=== PATIENT | female | born 1975 | race Caucasian/White ===

== ENCOUNTER 2020-02-13 09:59 | Outpatient (REF) | payer OTHER, SELFPAY ==
[2020-02-14 10:12] LABS: BV Int Neg Control Negative (Negative)
[2020-02-14 10:13] LABS: BV Int Pos Control Positive (Positive)
== END 2020-02-13 10:00 | disposition home or self-care (01) ==
LOC: HO.LNP 09:59
PROVIDERS: PCP Internal Medicine; Referring Provider Internal Medicine; Visit Provider Advanced Practice Midwife
DX: N93.9 Abnormal uterine and vaginal bleeding, unspecified (principal); N76.0 Acute vaginitis; Z53.8 Procedure and treatment not carried out for other reasons
CPT/HCPCS: 57455; 81025; 87480; 87510; 87660

== ENCOUNTER 2020-02-19 11:22 | Outpatient (REF) | payer OTHER, SELFPAY ==
[2020-02-19 12:07] LABS: MANUAL DIFF FLAG NO
[2020-02-19 12:10] LABS: Basophils Percent Auto 0.6 % (0-2); Eosinophils Absolute Auto 0.1 X10*3/uL (0.0-0.4); Eosinophils Percent Auto 2.4 % (0-4); Hematocrit 39.8 % (37-47); Hemoglobin 13.5 g/dl (12.0-16.0); Imm Gran Abs Auto 0.01 X10*3/uL (0.00-0.03); Imm Gran Pct Auto 0.2 % (0.0-0.4); Lymphocytes Absolute Auto 1.5 X10*3/uL (1.2-4.9); Lymphocytes Percent Auto 27.1 % (20-40); Mean Corpuscular HGB Conc 33.9 g/dl (31.0-35.0); Mean Corpuscular Hemoglobin 30.1 pg (27.0-33.0); Mean Corpuscular Volume 88.8 fL (80-98); Mean Platelet Volume 9.7 fL (9.4-12.3); Monocytes Absolute Auto 0.4 X10*3/uL (0.1-1.2); Neutrophils Absolute Auto 3.4 X10*3/uL (2.0-8.3); Neutrophils Percent Auto 62.7 % (45-73); Platelet Count 209 X10*3/uL (160-400); Red Blood Count 4.48 X10*6/uL (4.20-5.50); Red Cell Distribution Width 12.4 % (11.0-16.0); White Blood Count 5.4 X10*3/uL (4.8-10.8)
[2020-02-19 12:19] LABS: Glucose Urine UA NEG (NEG); Leukocyte Esterase Urine NEG (NEG); Nitrite Urine NEG (NEG); Specific Gravity - Urine <= 1.005 (1.005-1.025); Urine Blood 3+ (NEG); Urine Ketones NEG (NEG); Urine Protein NEG (NEG-TRACE)
[2020-02-19 12:26] LABS: Appearance Urine CLEAR; Color Urine YELLOW
[2020-02-19 12:29] LABS: Squamous Epithelial Cell Urine 1+ /LPF; WBC Urine 0 /HPF (0-4)
[2020-02-19 12:35] LABS: Alanine Aminotransferase 18 U/L (0-31); Albumin Level 4.4 g/dL (3.5-5.0); Alkaline Phosphatase 67 U/L (39-117); Anion Gap 11 (12-20); Aspartate Amino Transferase 20 U/L (5-31); Bilirubin Total 0.3 mg/dL (0.0-1.0); Blood Urea Nitrogen 13 mg/dL (9-16); Carbon Dioxide 23 mmol/L (22-29); Chloride 111 mmol/L (96-108); Estimated Glomerular Filt Rate > 60; Glucose Random 99 mg/dL (60-115); Potassium 3.7 mmol/l (3.3-5.1); Sodium 141 mmol/L (135-145); Total Protein 6.6 g/dL (6.5-8.0)
[2020-02-19 15:45] LABS: C Reactive Protein 0.06 mg/dL (< or = 0.50)
== END 2020-02-19 11:23 | disposition home or self-care (01) ==
LOC: HO.LAB 11:22
PROVIDERS: PCP Internal Medicine; Visit Provider Internal Medicine
DX: R31.9 Hematuria, unspecified (principal); R10.9 Unspecified abdominal pain
CPT/HCPCS: 36415; 80053; 81001; 85025; 86140; 87086

== ENCOUNTER 2020-02-20 12:29 | Outpatient (REF) | payer OTHER, SELFPAY ==
--- NOTE | 2020-02-20 | US_ITS ---
EXAMINATION: US RETROPERITONEAL COMPLETE (RENAL) CLINICAL INFORMATION: Hematuria. Right flank pain. COMPARISON: CT abdomen and pelvis 09/20/2016. Renal ultrasound 06/28/2016 and 12/15/2015. MRI abdomen 04/08/2016. TECHNIQUE: Real-time imaging of the kidneys and bladder. FINDINGS: RIGHT KIDNEY: 9.9 x 3.7 x 4.1 cm (SAG x AP x TRV). The kidney is normal in size, contour, and echogenicity. Renal cortical thickness is normal. No focal parenchymal lesions or hydronephrosis. At the interpolar aspect, a 3 mm nonobstructing calculus is seen, with twinkle artifact. LEFT KIDNEY: 10.9 x 5.5 x 5.6 cm (SAG x AP x TRV). The kidney is normal in size, contour, and echogenicity. Renal cortical thickness is normal. No focal parenchymal lesions or hydronephrosis. At the interpolar aspect, a 3 mm nonobstructing calculus is seen, with twinkle artifact. BLADDER: Well distended and normal. Bilateral ureteral jets are demonstrated. Prevoid bladder volume is 644 mL. Postvoid bladder volume is 311 mL. IMPRESSION: 1. Nonobstructing bilateral renal calculi are seen, as above. There is no hydronephrosis. 2. There is an increased postvoid residual volume.
== END 2020-02-20 12:30 | disposition home or self-care (01) ==
LOC: HO.US 12:29
PROVIDERS: PCP Internal Medicine; Visit Provider Internal Medicine
DX: R10.9 Unspecified abdominal pain (principal); R31.9 Hematuria, unspecified
CPT/HCPCS: 76775; 76857

== ENCOUNTER 2020-03-02 08:43 | Outpatient (REF) | payer OTHER, SELFPAY | END 2020-03-02 08:44 | disposition home or self-care (01) | LOC: HO.LAB 08:43 | PROVIDERS: PCP Internal Medicine; Visit Provider Internal Medicine | DX: Z20.828 Contact with and (suspected) exposure to other viral communicable diseases (principal) | CPT/HCPCS: 87635 ==

== ENCOUNTER → 2020-03-19 10:23 | Outpatient (BNVA) | payer OTHER, SELFPAY | PROVIDERS: Visit Provider Obstetrics & Gynecology | DX: Z76.89 Persons encountering health services in other specified circumstances (principal) ==

== ENCOUNTER → 2020-03-27 14:15 | Outpatient (BNVA) | payer OTHER, SELFPAY | PROVIDERS: PCP Internal Medicine; Visit Provider Obstetrics & Gynecology | DX: Z76.89 Persons encountering health services in other specified circumstances (principal) ==

== ENCOUNTER 2020-04-03 10:31 | Day surgery (SDC) | payer OTHER, SELFPAY ==
[2020-03-30 11:29] VITALS: BMI 21.8
--- NOTE | 2020-04-01 14:36 | P.CONAN_ITS ---
Documented by User: Yady Umaña 04/01/20 14:37 HPI - Anesthesia Eval Consult details Narrative: 44yo F for D&C Diagnostic Hysteroscopy, Poss Polypectomy, Myomectomy PMFSH Past Medical History Medical History ARASH positive Chronic pain Depression with anxiety GERD (gastroesophageal reflux disease) IBS (irritable bowel syndrome) Interstitial cystitis Lupus Migraine with aura PONV (postoperative nausea and vomiting) Renal calculi Vitamin D deficiency Family History Family History Mother Hx of cancer of lung Other No family history of breast cancer Surgical History Surgical History H/O colonoscopy H/O cystoscopy H/O lithotripsy History of loop electrical excision procedure (LEEP) Social History Social History Are you a primary intensive care nurse to a significant other at home: No Do you presently have visiting nurse or other home services: No Alcohol intake: never Smoking Status: Never smoker Use of substances other than those prescribed or required for medical reasons: No Have you been hit, kicked, punched, or otherwise hurt by someone within the past year? If so, by whom?: No Advance Directives: No Advance Directives Information Provided: No Advance Directives on File: No Sexual orientation: Straight/Heterosexual Gender identity: female Meds Allergies Allergy/AdvReac Type Severity Reaction Status Date / Time No Known Allergies Allergy Verified 03/30/20 11:25 [No Known Allergies*] seasonal Allergy Unknown Nasal Uncoded 03/30/20 11:25 congestion Home Medications Medication Instructions Recorded Confirmed Type amitriptyline 25 mg tablet 25 mg PO BEDTIME 02/13/20 03/30/20 History hydroxychloroquine 200 mg tablet 200 mg PO DAILY 02/13/20 03/30/20 History hyoscyamine sulfate 0.125 mg tablet 0.125 mg PO QID PRN 02/13/20 03/30/20 History ketorolac 10 mg tablet 10 mg PO Q OTHER DAY PRN 02/13/20 03/30/20 History ondansetron HCl 4 mg tablet 4 mg PO DAILY PRN 02/13/20 03/30/20 History sertraline 25 mg tablet 25 mg PO DAILY 02/13/20 03/30/20 History sumatriptan succinate 100 mg tablet 100 mg PO PRN 02/13/20 03/27/20 History topiramate 100 mg tablet 100 mg PO BID 02/13/20 03/27/20 History tramadol 50 mg tablet 100 mg PO BID PRN 02/13/20 03/27/20 History Exam Exam Date and Time: April 01, 2020 1436 Height,Weight and Vital Signs: Height 5 ft 5 in Weight 59.421 kg Pertinent Lab Results Pertinent Lab Results: Laboratory Tests 02/19/20 02/19/20 11:50 11:50 WBC 5.4 Hgb 13.5 Hct 39.8 Plt Count 209 Sodium 141 Potassium 3.7 Chloride 111 H Carbon Dioxide 23 BUN 13 Creatinine 0.83 Assessment and Plan Assessment Anesthesia Assessment: Chart Reviewed Documented by User: Anand White 04/03/20 12:08 PMFSH Past Medical History Medical History ARASH positive Chronic pain Depression with anxiety GERD (gastroesophageal reflux disease) IBS (irritable bowel syndrome) Interstitial cystitis Lupus Migraine with aura PONV (postoperative nausea and vomiting) Renal calculi Vitamin D deficiency Family History Family History Mother Hx of cancer of lung Other No family history of breast cancer Surgical History Surgical History H/O colonoscopy H/O cystoscopy H/O lithotripsy History of loop electrical excision procedure (LEEP) Social History Social History Are you a primary intensive care nurse to a significant other at home: No Do you presently have visiting nurse or other home services: No Alcohol intake: never Smoking Status: Never smoker Use of substances other than those prescribed or required for medical reasons: No Have you been hit, kicked, punched, or otherwise hurt by someone within the past year? If so, by whom?: No Advance Directives: No Advance Directives Information Provided: No Advance Directives on File: No Sexual orientation: Straight/Heterosexual Gender identity: female Meds Allergies Allergy/AdvReac Type Severity Reaction Status Date / Time No Known Allergies Allergy Verified 03/30/20 11:25 [No Known Allergies*] seasonal Allergy Unknown Nasal Uncoded 03/30/20 11:25 congestion Home Medications Medication Instructions Recorded Confirmed Type amitriptyline 25 mg tablet 25 mg PO BEDTIME 02/13/20 03/30/20 History hydroxychloroquine 200 mg tablet 200 mg PO DAILY 02/13/20 03/30/20 History hyoscyamine sulfate 0.125 mg tablet 0.125 mg PO QID PRN 02/13/20 03/30/20 History ketorolac 10 mg tablet 10 mg PO Q OTHER DAY PRN 02/13/20 03/30/20 History ondansetron HCl 4 mg tablet 4 mg PO DAILY PRN 02/13/20 03/30/20 History sertraline 25 mg tablet 25 mg PO DAILY 02/13/20 03/30/20 History sumatriptan succinate 100 mg tablet 100 mg PO PRN 02/13/20 03/27/20 History topiramate 100 mg tablet 100 mg PO BID 02/13/20 03/27/20 History tramadol 50 mg tablet 100 mg PO BID PRN 02/13/20 03/27/20 History Exam Airway Mallampati Class: II TM Dist: >3cm Neck ROM: Full Loose/Missing/Broken Teeth: No Heart: [id number] Lungs: cta b/l Assessment and Plan Assessment Anesthesia Assessment: Anesthesia Plan Discussed and Chart Reviewed Final Anesthetic Review NPO: Yes ASA Class: II Final Preanesthetic Review: No Changes in Pt Med Stat, Meds/Allgs Chart Reviewed, Consent Obtained/Reviewed and Anes Risks/Benef Reviewed Patient Risk: Low Procedure Risk: Low Anesthetic Plan Anesthetic Plan: GA Disposition: Standard PACU
[2020-04-03] VITALS (10 sets, daily range): BP systolic 114–134; BP diastolic 68–87; PULSE 79–94; RESP 16; TEMP 36.1–36.6; O2SAT 98–100
--- NOTE | 2020-04-03 10:14 | PM.OP ---
Brief Operative Note Date of Service: 04/03/20 Pre-op diagnosis: Completed Family Requesting permanent Sterilization Post-op diagnosis: same Procedure: Laparscoic bliateral salpingectomy Surgeon: Clifford Peralta MD Anesthesia: GETA Estimated blood loss (mL): 0 Pathology: other (Right & left fallopian tubes) Condition: stable Disposition: PACU
--- NOTE | 2020-04-03 10:16 | P.OP_ITS ---
Operative Note Operative Note Date of Service: 04/03/20 Narrative: PREOPERATIVE DIAGNOSIS:?Completed family requesting?permanent sterilization POSTOPERATIVE DIAGNOSIS:?Completed family requesting?permanent sterilization QBL: Minimal Anesthesia: GETA SURGEON:? Clifford Peralta MD?? Geographic Information Scientist: Complications: None Pathology: Right and left Fallopian tubes? DESCRIPTION OF PROCEDURE:?The patient was taken to the OR where general anesthesia was easily obtained. The patient was then prepped and draped in a sterile fashion and placed in dorsal lithotomy position. A speculum was introduced into the patient?s vagina for cervical visualization. Once the cervix was visualized, a single-toothed tenaculum was applied to the upper lip of the cervix, and a Humi manipulator was introduced into the patient?s cervix. The single tooth tenaculum was then removed and hemostasis was assured?using pressure. a Huntley catheter?was inserted and clear urine started draining. Gloves were changed to clean ones. Attention was then drawn to the abdomen where a 10 mm longitudinal incision was done intra umbilical and carried down all the way to the fascia, which was tented?up using 2 Ethan clamps and was nicked in the midline and then extended on both end of the incision?, them using 2 pick?ups the peritoneum?was entered with Metzenbaum scissors and under direct visualization, a 10 mm Gautam trocar was introduced into the patient?s abdomen. Once intraperitoneal placement was confirmed with direct visualization, pneumoperitoneum was started & was easily obtained.Then, two fingerbreadths above the pubic symphysis and towards the?right lower quadrant, under direct visualization, a 5 mm trocar was then introduced into the patient?s abdomen. and a 3rd one on the left?lower quadrant was placed?in a similar manner. The patient was placed in Trendelenburg position, Inspection revealed normal pelvic stru ctures & bilateral ovaries and fallopian tubes. Attention was then drawn to the left fallopian tube. The IP ligament was identified and fallopian tube was then grasped by the fimbria and incised from the mesosalpinx using ligasure device, using cautery for hemostasis and cutting afterwards a bite at a time all the way to the cornual end of the left tube. The same was done?on the?right fallopian tu be. Good hemostasis was noted from both fallopian tube sites and the operative site. Specimen were then removed from the patient?s abdomen. Copious irrigation was done. Once good hemostasis was noted from the patient?s abdomen, pneumoperitoneum was deflated and all trocars were removed. Infraumbilical fascia was closed with 0 Vicryl and interrupted suture. The skin was closed with 4-0 Vicryl. The Right and left?lower quadrant ports were closed with 0 Vicryl. Bupivicaine 0.25 10 cc were injected subcuticularly in the 3 incisions. Then speculum was put back in the vagina inspection revealed?hemostasis at the site of the tenaculum, the?humi manipulator was removed? and Huntley was draining clear urine was taken out too. Sponge, lap and needle counts were correct x2. The patient was taken to the recovery room in stable condition.
[2020-04-03 10:54] LABS: UPreg QC Valid YES; Urine Pregnancy NEGATIVE (NEGATIVE)
[2020-04-03] MEDS: Scopolamine 1.5 MG PATCH.TD.3 TRANSDERMA (10:57)
[2020-04-03] MEDS: Acetaminophen 325 MG TABLET 650 MG PO (10:57)
[2020-04-03] MEDS: Lactated Ringers 1,000 ML 100 ML IVCONT (10:57)
--- NOTE | 2020-04-03 12:07 | MHC.SHP ---
Pre-Procedural Eval Section A The patient is an INPATIENT: No Changes since office visit: No Cold of Flu in the past 2 weeks, No New Medical Problems, No Changes in Medication and No Patient answered all questions The History & Physical has been completed within 30 days and I have reviewed it.: Yes Section B Chief Complaint: Abnormal Uterine Bleeding Allergies: Allergies Allergy/AdvReac Type Severity Reaction Status Date / Time No Known Allergies Allergy Verified 03/30/20 11:25 [No Known Allergies*] seasonal Allergy Unknown Nasal Uncoded 03/30/20 11:25 congestion Plan Diagnosis/Plan: Unchanged Patient has been examined and remains a candidate for the planned procedure
--- NOTE | 2020-04-03 12:42 | PM.OP ---
Brief Operative Note Date of Service: 04/03/20 Pre-op diagnosis: Menometrorrhagia Post-op diagnosis: same Procedure: Hysteroscopy D&C Surgeon: Clifford Peralta MD Anesthesia: MAC Estimated blood loss (mL): 0 Pathology: other (Endometrial Scrapping. Polyp) Condition: stable Disposition: PACU
--- NOTE | 2020-04-03 12:47 | W.PM.OPN ---
Operative Note Operative Note Date of Service: 04/03/20 Narrative: Preop Diagnosis: Menometrorrhagia Operation: Diagnostic Hysteroscopy, Dilataion & Curettage Post Op Diagnosis: normal endometrial and endocervical cavity no evidence of pathology QBL: Minimal Anesthesia: MAC Surgeon: Clifford Peralta MD Special Collections Librarian: None Complication: None Pathology: Endometrial Scrapings Procedure: The patient was put in the dorsal lithotomy position, scrubbed, and draped in the usual manner. A sterile speculum was inserted in the patient's vagina. The anterior lip of the cervix was grasped with a single tooth tenaculum. The cervix was dilated up to 5 mm, then the scope was inserted in the patient's uterus. Inspection revealed normal endocervical & endometrial cavity with no evidence of pathology. The scope was taken out of the uterine cavity , then sharp curetting was carried on with no complications. At the end of the procedure, all instruments were taken out of the patient uterine and vaginal cavity. The single tooth tenaculum was removed and homeostasis was assured using pressure. The patient tolerated the procedure well and was transferred to the PACU in a stable condition.
[2020-04-03] MEDS: fentaNYL citrate/PF 100 MCG/2 ML VIAL 50 MCG IVPUSH ×2 (13:05→13:17)
[2020-04-03] MEDS: oxyCODONE HCl Immed Release 5 MG TABLET PO ×2 (13:08→13:25)
== END 2020-04-03 14:00 | disposition home or self-care (01) ==
PROVIDERS: Nurse Practitioner; PCP Internal Medicine; Visit Provider Obstetrics & Gynecology
PROC: 0UDB8ZX Extraction of Endometrium, Via Natural or Artificial Opening Endoscopic, Diagnostic (ICD-10-PCS; CPT 58558; principal; 2020-04-03 12:00)
DX: N93.9 Abnormal uterine and vaginal bleeding, unspecified (principal); N92.1 Excessive and frequent menstruation with irregular cycle; M32.9 Systemic lupus erythematosus, unspecified; G89.29 Other chronic pain; G43.109 Migraine with aura, not intractable, without status migrainosus; E55.9 Vitamin D deficiency, unspecified; Z79.899 Other long term (current) drug therapy
CPT/HCPCS: 58558; 81025; 88305; J1100; J2250; J2405; J3010

== ENCOUNTER 2020-04-06 09:52 | Outpatient (REF) | payer OTHER, SELFPAY ==
[2020-04-06 11:48] LABS: COVID-19 Test Negative (Negative)
== END 2020-04-06 09:53 | disposition home or self-care (01) ==
LOC: HO.EMPCOV 09:52
PROVIDERS: PCP Internal Medicine; Visit Provider Internal Medicine
DX: Z20.828 Contact with and (suspected) exposure to other viral communicable diseases (principal)
CPT/HCPCS: 87635; C9803

== ENCOUNTER → 2020-04-23 14:25 | Outpatient (BNVA) | payer OTHER, SELFPAY | PROVIDERS: Visit Provider Obstetrics & Gynecology | DX: Z76.89 Persons encountering health services in other specified circumstances (principal) ==

== ENCOUNTER → 2020-08-20 10:17 | Outpatient (BNVA) | payer OTHER, SELFPAY | PROVIDERS: PCP Internal Medicine; Visit Provider Student in an Organized Health Care Education/Training Program ==

== ENCOUNTER → 2021-06-16 14:57 | Outpatient (BNVA) | payer OTHER, SELFPAY | PROVIDERS: PCP Nurse Practitioner Family; Visit Provider Anesthesiology ==

== ENCOUNTER 2021-07-13 05:55 | Outpatient (REF) | payer OTHER, SELFPAY ==
--- NOTE | ~2021-07-13 | FL_ITS ---
EXAMINATION: XR FLUOROSCOPY WITH IMAGES CLINICAL INFORMATION: Sacroiliitis. COMPARISON: None. TECHNIQUE: Fluoroscopy performed by Reema Blandon. Fluoroscopy time: 0.2 minutes DAP: 1.6 Gy-cm2 Images: 1 FINDINGS: Images demonstrate needle placement over the right sacroiliac joint. FL/FL guidance in treatment room IMPRESSION: Fluoroscopy guidance for pain management procedure.
== END 2021-07-13 05:56 | disposition home or self-care (01) ==
LOC: HO.RADIR 05:55
PROVIDERS: Visit Provider Anesthesiology
DX: M46.1 Sacroiliitis, not elsewhere classified (principal); E55.9 Vitamin D deficiency, unspecified; M79.7 Fibromyalgia; G89.4 Chronic pain syndrome; F41.8 Other specified anxiety disorders; Z91.09 Other allergy status, other than to drugs and biological substances
CPT/HCPCS: J3300; Q9967

== ENCOUNTER → 2021-08-16 09:16 | Outpatient (BNVA) | payer OTHER, SELFPAY | PROVIDERS: PCP Nurse Practitioner Family; Visit Provider Anesthesiology | DX: Z13.89 Encounter for screening for other disorder (principal) ==

== ENCOUNTER 2021-11-02 06:24 | Outpatient (REF) | payer OTHER, SELFPAY ==
--- NOTE | ~2021-11-02 | FL_ITS ---
EXAMINATION: XR FLUOROSCOPY WITH IMAGES CLINICAL INFORMATION: Sacroiliitis. COMPARISON: 07/13/2021. TECHNIQUE: Fluoroscopy performed by Reema Blandon. Fluoroscopy time: 0.4 minutes DAP: 1.26 Gy-cm2 Images: 4 FINDINGS: Imaging demonstrates needles and contrast overlying the sacroiliac joints bilaterally. FL/FL guidance in treatment room IMPRESSION: Fluoroscopy performed for pain management procedure.
== END 2021-11-02 06:25 | disposition home or self-care (01) ==
LOC: HO.RADIR 06:24
PROVIDERS: Visit Provider Anesthesiology
DX: M46.1 Sacroiliitis, not elsewhere classified (principal); G89.4 Chronic pain syndrome
CPT/HCPCS: 27096

== ENCOUNTER 2021-12-21 17:53 | Outpatient (REF) | payer OTHER, SELFPAY | END 2021-12-21 17:54 | disposition home or self-care (01) | LOC: HO.LNP 17:53 | PROVIDERS: Visit Provider Nurse Practitioner Family | DX: N39.0 Urinary tract infection, site not specified (principal) | CPT/HCPCS: 87086 ==

== ENCOUNTER 2021-12-22 15:07 | Outpatient (REF) | payer OTHER, SELFPAY ==
--- NOTE | ~2021-12-22 | XR_ITS ---
EXAMINATION: XR ABDOMEN KUB CLINICAL INDICATION: N20.0 - Calculus of kidney COMPARISON: Renal ultrasound 02/20/2020; radiographs lumbar spine 10/13/[address] abdomen and pelvis 03/12/2016. TECHNIQUE: AP x2 views of the abdomen. FINDINGS: Lung bases clear. No gaseous dilatation of bowel or abnormal collections of gas. Moderate stool right colon. Small oval calcification just lateral to upper pole right kidney, possibly gallstone, similar to lumbar radiographics 2017. No calculi noted on remote CT 2015. No definite renal or ureteral calculi by plain film. No visible acute bony abnormality. XR/XR KUB IMPRESSION: -Question small gallstone, similar to radiographs 2017. -No definite visible urinary tract calculi on plain film.
== END 2021-12-22 15:08 | disposition home or self-care (01) ==
LOC: HO.XRAY 15:07
PROVIDERS: Visit Provider Nurse Practitioner Family
DX: N20.0 Calculus of kidney (principal)
CPT/HCPCS: 74018

== ENCOUNTER 2021-12-24 07:19 | Outpatient (REF) | payer OTHER, SELFPAY ==
[2021-12-24 11:13] LABS: MANUAL DIFF FLAG NO
[2021-12-24 11:21] LABS: Basophils Absolute Auto 0.1 X10*3/uL (0.0-0.2); Basophils Percent Auto 0.7 % (0-2); Eosinophils Absolute Auto 0.4 X10*3/uL (0.0-0.4); Eosinophils Percent Auto 4.3 % (0-4); Hematocrit 41.9 % (37.0-47.0); Hemoglobin 13.7 g/dl (12.0-16.0); Imm Gran Abs Auto 0.03 X10*3/uL (0.00-0.03); Imm Gran Pct Auto 0.4 % (0.0-0.4); Lymphocytes Absolute Auto 2.4 X10*3/uL (1.2-4.9); Lymphocytes Percent Auto 29.1 % (20-40); Mean Corpuscular HGB Conc 32.7 g/dl (31.0-35.0); Mean Corpuscular Hemoglobin 29.3 pg (27.0-33.0); Mean Corpuscular Volume 89.7 fL (80.0-98.0); Mean Platelet Volume 9.7 fL (9.4-12.3); Monocytes Absolute Auto 0.9 X10*3/uL (0.1-1.2); Monocytes Percent Auto 10.7 % (2-11); Neutrophils Absolute Auto 4.5 x10*3/uL (2.0-8.3); Neutrophils Percent Auto 54.8 % (45-73); Platelet Count 268 X10*3/uL (160-400); Red Blood Count 4.67 X10*6/uL (4.20-5.50); Red Cell Distribution Width 13.2 % (11.0-16.0); White Blood Count 8.1 X10*3/uL (4.8-10.8)
[2021-12-24 11:45] LABS: Alanine Aminotransferase 15 U/L (0-31); Albumin Level 4.6 g/dL (3.5-5.0); Alkaline Phosphatase 77 U/L (39-117); Amylase 77 U/L (28-100); Anion Gap 14 (12-20); Aspartate Amino Transferase 20 U/L (5-31); Bilirubin Total 0.5 mg/dL (0.0-1.0); Blood Urea Nitrogen 10 mg/dL (9-16); Calcium 9.5 mg/dL (8.4-10.2); Carbon Dioxide 25 mmol/L (22-29); Chloride 101 mmol/L (96-108); Cholesterol 238 mg/dL; Estimated Glomerular Filt Rate > 60; Glucose Fasting 72 mg/dL (60-99); HDL Cholesterol 48 mg/dL; LDL Cholesterol Calculated 146 mg/dl; Lipase 45 U/L (8-78); Potassium 4.4 mmol/L (3.3-5.1); Sodium 136 mmol/L (135-145); Total Protein 6.9 g/dL (6.5-8.0); Triglycerides 223 mg/dL
[2021-12-24 11:51] LABS: TSH reflex Free T4 1.77 uIU/mL (0.32-4.0)
== END 2021-12-24 07:20 | disposition home or self-care (01) ==
LOC: HO.HMGCLDS 07:19
PROVIDERS: PCP Nurse Practitioner Family; Visit Provider Nurse Practitioner Family
DX: R10.2 Pelvic and perineal pain (principal); N20.0 Calculus of kidney
CPT/HCPCS: 36415; 80053; 80061; 82150; 83690; 84443; 85025

== ENCOUNTER 2022-02-17 10:52 | Outpatient (REF) | payer OTHER, SELFPAY ==
[2022-02-17 16:47] LABS: CT PCR NOT DETECTED (Not Detect.); NG PCR NOT DETECTED (Not Detect.)
[2022-02-18 10:26] LABS: BV Int Neg Control Negative (Negative); BV Int Pos Control Positive (Positive)
== END 2022-02-17 10:53 | disposition home or self-care (01) ==
LOC: HO.LNP 10:52
PROVIDERS: Visit Provider Obstetrics & Gynecology
DX: Z11.3 Encounter for screening for infections with a predominantly sexual mode of transmission (principal); R10.2 Pelvic and perineal pain; N39.0 Urinary tract infection, site not specified; N93.9 Abnormal uterine and vaginal bleeding, unspecified; R31.29 Other microscopic hematuria; D21.9 Benign neoplasm of connective and other soft tissue, unspecified
CPT/HCPCS: 81025; 87086; 87480; 87491; 87510; 87591; 87660; 96372; J0696

== ENCOUNTER 2022-03-09 14:14 | Outpatient (REF) | payer OTHER, SELFPAY | END 2022-03-09 14:15 | disposition home or self-care (01) | LOC: HO.LNP 14:14 | PROVIDERS: Visit Provider Obstetrics & Gynecology | DX: N93.9 Abnormal uterine and vaginal bleeding, unspecified (principal) | CPT/HCPCS: 58100; 88305 ==

== ENCOUNTER 2022-04-15 07:50 | Day surgery (SDC) | payer OTHER, SELFPAY ==
--- NOTE | 2022-04-14 09:32 | HO.ANESPROP2 ---
Documented by User: Yady Umaña NP 04/14/22 09:33 HPI - Anesthesia Eval Consult details Narrative: 46yo F for Uterine Ablation w/Roxannaasure PMFSH Active Problems Active Problems: All Active Problems (Updated 03/24/22 @ 13:52 by Clifford Peralta MD) Abnormal uterine bleeding (AUB) (Acute) Acute vaginitis (Acute) Migraine (Acute) UTI (urinary tract infection) (Acute) Kidney stone on right side (Acute) Suprapubic pain, acute (Acute) Pelvic pain (Acute) Microscopic hematuria (Acute) Myoma (Acute) Chronic pain syndrome (Acute) Sacroiliitis (Acute) Fibromyalgia (Acute) Past Medical History Medical History ARASH positive Chronic pain Chronic pain syndrome Depression with anxiety Fibromyalgia GERD (gastroesophageal reflux disease) IBS (irritable bowel syndrome) Interstitial cystitis Lupus Migraine with aura PONV (postoperative nausea and vomiting) Renal calculi Sacroiliitis Vitamin D deficiency Family History Family History Mother Hx of cancer of lung Other No family history of breast cancer Surgical History Surgical History H/O colonoscopy H/O cystoscopy H/O lithotripsy History of dilatation and curettage History of loop electrical excision procedure (LEEP) Social History Social History Are you a primary team primary care physician to a significant other at home: No Do you presently have visiting nurse or other home services: No Alcohol intake: never Patient Tobacco Use Status: Never used Tobacco Substance Use Type Other:: cbd oil - back Are you DNR?: No Advance Directives: No Advance Directives Information Provided: Yes Sexual orientation: Straight/Heterosexual Gender identity: Female Meds Allergies Allergy/AdvReac Type Severity Reaction Status Date / Time seasonal Allergy Intermediate Nasal Uncoded 04/12/22 10:23 congestion Home Medications Medication Instructions Recorded Confirmed Last Taken Type amitriptyline 25 mg tablet 25 mg PO BEDTIME 02/13/20 04/12/22 Unknown History hydroxychloroquine 200 mg tablet 200 mg PO DAILY 02/13/20 04/12/22 Unknown History hyoscyamine sulfate 0.125 mg tablet 0.125 mg PO QID PRN pain 02/13/20 04/12/22 Unknown History ketorolac 10 mg tablet 10 mg PO Q OTHER DAY PRN pain 02/13/20 04/12/22 Unknown History sertraline 25 mg tablet 25 mg PO DAILY 02/13/20 04/12/22 Unknown History sumatriptan succinate 100 mg tablet 100 mg PO PRN Migraine Headache 02/13/20 12/22/21 Unknown History propranolol 10 mg tablet 10 mg PO DAILY 06/16/21 04/12/22 Unknown History Exam Exam Date and Time: April 14, 2022 0932 Assessment and Plan Assessment Anesthesia Assessment: Chart Reviewed Documented by User: Stan Menendez MD 04/15/22 08:37 [facility] Past Medical History Medical History ARASH positive Chronic pain Chronic pain syndrome Depression with anxiety Fibromyalgia GERD (gastroesophageal reflux disease) IBS (irritable bowel syndrome) Interstitial cystitis Lupus Migraine with aura PONV (postoperative nausea and vomiting) Renal calculi Sacroiliitis Vitamin D deficiency Patient : No Family History Family History Mother Hx of cancer of lung Other No family history of breast cancer Family history of problems with anesthesia: No Surgical History Surgical History H/O colonoscopy H/O cystoscopy H/O lithotripsy History of dilatation and curettage History of loop electrical excision procedure (LEEP) History of Problems with Anesthesia: Yes (PONV) Social History Social History Are you a primary team primary care physician to a significant other at home: No Do you presently have visiting nurse or other home services: No Alcohol intake: never Patient Tobacco Use Status: Never used Tobacco Substance Use Type Other:: cbd oil - back Are you DNR?: No Advance Directives: No Advance Directives Information Provided: Yes Sexual orientation: Straight/Heterosexual Gender identity: Female Meds Allergies Allergy/AdvReac Type Severity Reaction Status Date / Time seasonal Allergy Intermediate Nasal Uncoded 04/12/22 10:23 congestion Home Medications Medication Instructions Recorded Confirmed Last Taken Type amitriptyline 25 mg tablet 25 mg PO BEDTIME 02/13/20 04/12/22 Unknown History hydroxychloroquine 200 mg tablet 200 mg PO DAILY 02/13/20 04/12/22 Unknown History hyoscyamine sulfate 0.125 mg tablet 0.125 mg PO QID PRN pain 02/13/20 04/12/22 Unknown History ketorolac 10 mg tablet 10 mg PO Q OTHER DAY PRN pain 02/13/20 04/12/22 Unknown History sertraline 25 mg tablet 25 mg PO DAILY 02/13/20 04/12/22 Unknown History sumatriptan succinate 100 mg tablet 100 mg PO PRN Migraine Headache 02/13/20 12/22/21 Unknown History propranolol 10 mg tablet 10 mg PO DAILY 06/16/21 04/12/22 Unknown History Exam Airway Mallampati Class: II TM Dist: >3cm Neck ROM: Full Loose/Missing/Broken Teeth: No Heart: ok Lungs: ok Assessment and Plan Final Anesthetic Review Family History of Problems with Anesthesia: No History of Problems with Anesthesia: Yes (PONV) NPO: Yes ASA Class: III Final Preanesthetic Review: No Changes in Pt Med Stat, Meds/Allgs Chart Reviewed, Consent Obtained/Reviewed and Anes Risks/Benef Reviewed Patient Risk: Intermediate Procedure Risk: Low Anesthetic Plan Anesthetic Plan: GA and Agree w/ Assess. and Plan Disposition: Standard PACU
[2022-04-15] VITALS (8 sets, daily range): BP systolic 110–146; BP diastolic 70–92; PULSE 76–102; RESP 14–18; TEMP 36.2–37.1; O2SAT 96–98; BMI 24.0
--- NOTE | 2022-04-15 08:24 | MHC.SHP ---
Pre-Procedural Eval Section A Date of Service: 04/15/22 The patient is an INPATIENT: No Changes since office visit: No Cold of Flu in the past 2 weeks, No New Medical Problems, No Changes in Medication and No Patient answered all questions The History & Physical has been completed within 30 days and I have reviewed it.: Yes Section B Chief Complaint: Abnormal uterine and vaginal bleeding, Allergies: Allergies Allergy/AdvReac Type Severity Reaction Status Date / Time seasonal Allergy Intermediate Nasal Uncoded 04/12/22 10:23 congestion Plan Diagnosis/Plan: Unchanged I have reviewed the history and physical and performed a pertinent physical examination on my patient. No changes have occurred unless specified.
[2022-04-15 08:26] LABS: UPreg QC Valid YES; Urine Pregnancy NEGATIVE (NEGATIVE)
[2022-04-15] MEDS: Lactated Ringers 1,000 ML 100 ML IVCONT (08:40)
[2022-04-15] MEDS: Scopolamine 1.5 MG PATCH.TD.3 TRANSDERMA (08:41)
--- NOTE | 2022-04-15 10:20 | P.BOP_ITS ---
Brief Operative Note Date of Service: 04/15/22 Pre-op diagnosis: Menometrorrhagia Post-op diagnosis: same Procedure: NovaSure Endometrial Ablation Surgeon: Clifford Peralta MD Anesthesia: MAC Was an Sales Research Analyst used for this Procedure?: No Estimated blood loss (mL): 0 Pathology: none sent Condition: stable Disposition: PACU
--- NOTE | 2022-04-15 10:21 | W.PM.OPN ---
Operative Note Operative Note Date of Service: 04/15/22 Narrative: Preop diagnosis: Abnormal uterine bleeding Post Op Diagnosis: Same Op: Novasure Endometrial Ablation Anesthesia: GL[employer] Cardiovascular Disease Specialist: None QBL: Minimal Pathology: None Complications: None Procedure: The patient was put in the dorsal lithotomy position. She was prepped and draped in the usual sterile manner. Bimanual exam prior to prepping revealed a mobile, anteverted uterus. A speculum was placed in the vagina and the anterior lip of the cervix was grasped with a single toothed tenaculum and brought forward. Taking care not to enter deep into the uterus, a sound was passed inside to measure the length of the uterus and cervix. This length was found to be 8 cm. Next, Hegar dilator was inserted into the cervical os to measure the cervical length which was 3 cm. This yielded an endometrial cavity length of 6.5 cm. A series of Hegar dilators were then inserted sequentially into the cervical os up to a size of 5 mm. The Novasure device was then opened and tested; the fan deployed easily. The instrument was set to the correct cavity length and introduced into the uterine cavity. The fan was slowly deployed with gentle movements to ensure a snug fit within the cavity. The cavity width read 4.5 cm. The measurements were imported and a cavity check was done. The trumpet was then slid down to the cervix and the device was activated. The total burn time was 91 seconds. The fan was retracted and device removed. The fan was examined and revealed charred tissue. The tenaculum was removed and the cervix examined for hemostasis which was achieved using pressure. Finally the speculum was removed. The patient tolerated the procedure well and was brought to the recovery room in a stable condition. At the end of the procedure all sponges and instruments were counted and correct. The blood loss was minimal and there were no complications.
[2022-04-15] MEDS: oxyCODONE HCl Immed Release 5 MG TABLET PO (10:29)
[2022-04-15] MEDS: fentaNYL citrate/PF 100 MCG/2 ML VIAL 50 MCG IVPUSH ×2 (10:29→10:34)
[2022-04-15] MEDS: Ketorolac Tromethamine 15 MG/ML VIAL IVPUSH (10:31)
[2022-04-15] MEDS: Acetaminophen 325 MG TABLET 650 MG PO (10:34)
[2022-04-15] MEDS: ondansetron HCL 4 MG/2 ML VIAL IVPUSH (10:51)
== END 2022-04-15 11:29 | disposition home or self-care (01) ==
PROVIDERS: Nurse Practitioner; PCP Nurse Practitioner Family; Visit Provider Obstetrics & Gynecology
PROC: (CPT 58353; principal; 2022-04-15 09:30)
DX: N93.9 Abnormal uterine and vaginal bleeding, unspecified (principal); N92.1 Excessive and frequent menstruation with irregular cycle; N30.10 Interstitial cystitis (chronic) without hematuria; M79.7 Fibromyalgia; M32.9 Systemic lupus erythematosus, unspecified; G89.4 Chronic pain syndrome; M46.1 Sacroiliitis, not elsewhere classified; F41.8 Other specified anxiety disorders; E55.9 Vitamin D deficiency, unspecified; G43.109 Migraine with aura, not intractable, without status migrainosus; J30.2 Other seasonal allergic rhinitis; Z87.442 Personal history of urinary calculi; Z79.899 Other long term (current) drug therapy
CPT/HCPCS: 58353; 81025; J1100; J1885; J2405; J3010

== ENCOUNTER 2023-01-07 10:21 | Emergency (ER) | payer OTHER, SELFPAY ==
--- NOTE | ~2023-01-07 | XR_ITS ---
EXAMINATION: XR HIP, RIGHT CLINICAL INFORMATION: Pain on palpation after fall suspect fracture COMPARISON: None available. TECHNIQUE: Three views of the right hip. FINDINGS: Minimally displaced fracture along the right superior lateral acetabular roof with an osteophyte noted laterally measuring 2 mm. Joint spaces and alignment are otherwise maintained. Soft tissues are unremarkable. XR/XR hip RT w PEL1V IMPRESSION: Minimally displaced fracture along the right superior lateral acetabular roof with an osteophyte noted laterally measuring 2 mm.
--- NOTE | ~2023-01-07 | XR_ITS ---
EXAMINATION: XR RIBS, RIGHT CLINICAL INFORMATION: Pain after fall. Right anterior rib soreness after fall. COMPARISON: None available. TECHNIQUE: Chest 1 view. 3 views of the right ribs were obtained. FINDINGS: Lungs are clear. No consolidation, pneumothorax, or pleural effusion. The cardiomediastinal silhouette and pulmonary vasculature are within normal limits.. Soft tissue marker positioned laterally along the inferior aspect of the rib cage. No acute displaced rib fracture is identified. XR/XR ribs RT min 3V w CXR1V IMPRESSION: No evidence of acute pulmonary process. No acute displaced rib fractures identified. If there is persistent symptoms, recommend follow-up radiographs in 3-7 days.
--- NOTE | ~2023-01-07 | XR_ITS ---
EXAMINATION: XR SHOULDER, RIGHT CLINICAL INFORMATION: Shoulder pain after fall COMPARISON: None available. TECHNIQUE: 2 AP and one scapular Y view of the right shoulder. FINDINGS: On the first AP projection, is a 7 x 10 mm density projected over the greater tuberosity and the subjacent soft tissue. This is not visualized on the second view AP projection, and may be density overlying the patient. Clinically correlate. Anatomic alignment of the glenohumeral and acromioclavicular joints. Glenohumeral joint space is maintained. No visible acute fracture or dislocation. Visualized right clavicle is intact. There are densities project over the lower cervical spine, incompletely evaluated, question sequela of prior surgery. XR/XR shoulder RT min 2V IMPRESSION: 1. 7 x 10 mm density projected over the greater tuberosity/lateral tissues, only single projection, may be related to overlapping densities. Clinically correlate. Repeat radiographs as clinically warranted. 2. No evidence of acute fracture or dislocation. 3. Densities projected over the cervical spine, question sequela prior surgery. Clinically correlate. Dedicated neck x-rays for evaluation as clinically warranted.
[2023-01-07 10:32] VITALS: BP 125/78; PULSE 90; RESP 20; TEMP 36.7; O2SAT 97; BMI 22.5
[2023-01-07 11:42] VITALS: BP 126/70; PULSE 77; RESP 19; TEMP 36.6; O2SAT 97
[2023-01-07] MEDS: Ondansetron ODT 4 MG TAB.RAPDIS TRANSLINGU (12:00)
[2023-01-07 12:10] LABS: MANUAL DIFF FLAG NO
[2023-01-07 12:13] LABS: Basophils Absolute Auto 0.1 X10*3/uL (0.0-0.2); Basophils Percent Auto 0.8 % (0-2); Eosinophils Absolute Auto 0.3 X10*3/uL (0.0-0.4); Eosinophils Percent Auto 4.6 % (0-4); Hematocrit 39.5 % (37.0-47.0); Hemoglobin 13.2 g/dl (12.0-16.0); Imm Gran Abs Auto 0.01 X10*3/uL (0.00-0.03); Imm Gran Pct Auto 0.2 % (0.0-0.4); Lymphocytes Absolute Auto 0.8 X10*3/uL (1.2-4.9); Lymphocytes Percent Auto 12.4 % (20-40); Mean Corpuscular HGB Conc 33.4 g/dl (31.0-35.0); Mean Corpuscular Hemoglobin 29.8 pg (27.0-33.0); Mean Corpuscular Volume 89.2 fL (80.0-98.0); Mean Platelet Volume 9.7 fL (9.4-12.3); Monocytes Absolute Auto 0.3 X10*3/uL (0.1-1.2); Neutrophils Absolute Auto 4.9 x10*3/uL (2.0-8.3); Platelet Count 215 X10*3/uL (160-400); Red Blood Count 4.43 X10*6/uL (4.20-5.50); Red Cell Distribution Width 12.3 % (11.0-16.0); White Blood Count 6.3 X10*3/uL (4.8-10.8)
--- NOTE | 2023-01-07 12:16 | ED.FALL ---
HPI - Fall General Chief Complaint: Fall Stated Complaint: fell 01/06, hurt shoulder/ hip Time Seen by Provider: 01/07/23 11:53 Source: patient History of Present Illness HPI Narrative: 47-year-old female who states that she was washing her dog and slipped on some water on the floor and fell heavily onto her right side now has residual right shoulder pain and right hip pain. Patient reports that she did hit her head but denies any loss of consciousness and denies any neck pain. Related Data Home Medications Medication Instructions Recorded Confirmed amitriptyline 25 mg tablet 25 mg PO BEDTIME 02/13/20 04/12/22 hyoscyamine sulfate 0.125 mg tablet 0.125 mg PO QID PRN pain 02/13/20 04/12/22 sertraline 25 mg tablet 25 mg PO DAILY 02/13/20 04/12/22 sumatriptan succinate 100 mg tablet 100 mg PO PRN Migraine Headache 02/13/20 12/22/21 Previous Rx's Medication Instructions Recorded ondansetron 4 mg disintegrating 4 mg PO Q8H PRN nausea and 12/21/21 tablet vomiting 7 days #20 tabs metronidazole 500 mg tablet 500 mg PO BID 14 days #28 tabs 02/17/22 ondansetron 4 mg oral soluble film 4 mg PO Q8H PRN nausea and 01/07/23 vomiting #30 ea oxycodone 5 mg tablet 5 mg PO Q8H PRN breakthrough pain, 01/07/23 severe #7 tabs Allergies Allergy/AdvReac Type Severity Reaction Status Date / Time seasonal Allergy Intermediate Nasal Uncoded 01/07/23 10:42 congestion Review of Systems Review of Systems: Pertinent positives and negatives as stated in HPI [facility] Past Medical History Source: nursing notes reviewed Medical History ARASH positive Chronic pain Chronic pain syndrome Depression with anxiety Fibromyalgia GERD (gastroesophageal reflux disease) IBS (irritable bowel syndrome) Interstitial cystitis Lupus Migraine with aura PONV (postoperative nausea and vomiting) Renal calculi Sacroiliitis Vitamin D deficiency Surgical History H/O colonoscopy H/O cystoscopy H/O lithotripsy History of dilatation and curettage History of loop electrical excision procedure (LEEP) Family History Family History Mother Hx of cancer of lung Other No family history of breast cancer Social History Social History Are you a primary healthcare advisory services manager to a significant other at home: No Do you presently have visiting nurse or other home services: No Alcohol intake: never Patient Tobacco Use Status: Never used Tobacco Advance Directives: No Advance Directives Information Provided: No Sexual orientation: Straight/Heterosexual Gender identity: Female Physical Exam Vital Signs: Vital Signs: Last Vital Signs Temp 97.9 F 01/07/23 11:42 Pulse 77 01/07/23 11:42 Resp 19 01/07/23 11:42 BP 126/70 01/07/23 11:42 Pulse Ox 97 01/07/23 11:42 O2 Del Method Room Air 01/07/23 11:42 BMI result Body Mass Index 22.5 VITAL SIGNS: Reviewed. GENERAL: Well developed, well nourished, in no acute distress. HEAD: Normocephalic/atraumatic EYES: PERRLA, EOMI EARS: Ext canals without abnormality NOSE: Nares patent bilateral OROPHARYNX: no oral lesions noted, posterior pharynx clear NECK: Supple, no adenopathy, no midline cervical spine tenderness to palpation or step-offs noted LUNGS: Normal breath sounds. No adventitious sounds or accessory muscle use. SpO2<97> CARDIOVASCULAR: Regular rate and rhythm without noted murmurs ABDOMEN: Soft, non-tender, non-distended with bowel sounds. PELVIS: Pain, stable, ecchymosis noted to lateral RIGHT HIP w/o rotation or shortening MUSCULOSKELETAL: No tenderness, deformities, or effusions noted on gross inspection. EXTREMITIES: No cyanosis, clubbing or edema. RIGHT SHOULDER: no deformity, no erythema/induration/ecchymosis, fROM, no ttp SKIN: Inspection of the skin reveals no rashes NEUROLOGIC: Alert and oriented x 4. Strength and sensation to light touch were grossly intact x 4. Medications Administered Discontinued Medications Generic Name Dose Route Start Last Admin Trade Name Freq PRN Reason Stop Dose Admin Ondansetron HCl 4 mg 01/07/23 11:54 01/07/23 12:00 Ondansetron Odt 4 Mg Tab.Rapdis TRANSLINGU 01/07/23 11:55 4 mg ONCE ONE Administration Oxycodone HCl 5 mg 01/07/23 13:54 01/07/23 14:06 Oxycodone Hcl Immed Release 5 Mg Tablet PO 01/07/23 13:55 5 mg ONCE ONE Administration Medical Decision Making Medical Decision Making [facility] Narrative: 47-year-old female with history and clinical presentation, DDX: Contusion of right hip and lower clinical suspicion for fracture or dislocation, no significant injury noted to the right shoulder but will get x-rays to rule out any occult fracture or joint space issues, no injuries noted the head and no LOC so no CT of the head and no cervical spine issues and therefore will not pursue CT scan cervical spine but will obtain rib series chest x-ray. I reviewed all imaging studies, on the shoulder and rib imaging studies there is no evidence of acute fracture, no shoulder dislocations and otherwise my interpretation is in agreement with radiology's impression. On review of the x-ray of the right hip there is a minimally displaced fracture along the right superior lateral acetabular roof. I did discuss this case with Orthopedics at 1348 and agree with the use of a walker and WBAT. All findings and results were discussed with patient at bedside and she was discharged home with a referral follow-up with orthopedics on Monday. Differential Diagnosis Differential Diagnoses: The differential diagnosis associated with the presentation includes Please see the discussion above Admission/Observation Consideration of admission/observation: Escalation of care including admission/observation considered Please see the discussion above Lab Data 01/07/23 12:04 01/07/23 12:04 Labs: Lab Results 01/07/23 01/07/23 01/07/23 Range/Units 12:04 12:04 12:04 WBC 6.3 (4.8-10.8) X10*3/uL RBC 4.43 (4.20-5.50) X10*6/uL Hgb 13.2 (12.0-16.0) g/dl Hct 39.5 (37.0-47.0) % MCV 89.2 (80.0-98.0) fL MCH 29.8 (27.0-33.0) pg MCHC 33.4 (31.0-35.0) g/dl RDW 12.3 (11.0-16.0) % Plt Count 215 (160-400) X10*3/uL MPV 9.7 (9.4-12.3) fL Immature Gran % (Auto) 0.2 (0.0-0.4) % Neut % (Auto) 78.0 H (45-73) % Lymph % (Auto) 12.4 L (20-40) % [place] % (Auto) 4.0 (2-11) % Eos % (Auto) 4.6 H (0-4) % Baso % (Auto) 0.8 (0-2) % Lymph # (Auto) 0.8 L (1.2-4.9) X10*3/uL [place] # (Auto) 0.3 (0.1-1.2) X10*3/uL Eos # (Auto) 0.3 (0.0-0.4) X10*3/uL Baso # (Auto) 0.1 (0.0-0.2) X10*3/uL Abs Immat Gran (auto) 0.01 (0.00-0.03) X10*3/uL Absolute Neuts (auto) 4.9 (2.0-8.3) x10*3/uL Absolute Nucleated RBC 0.000 (0.0-0.012) X10*3/uL Nucleated RBC % (auto) 0.0 (0.0-0.2) /100WBC ESR 7 (0-20) MM/HR Sodium 140 (135-145) mmol/L Potassium 4.3 (3.3-5.1) mmol/L Chloride 110 H (96-108) mmol/L Carbon Dioxide 24 (22-29) mmol/L Anion Gap 10 L (12-20) BUN 12 (9-16) mg/dL Creatinine 0.73 (0.5-1.4) mg/dL Estim Creat Clear Calc 87.6 Estimated GFR > 60 Random Glucose 98 (60-115) mg/dL Calcium 9.6 (8.4-10.2) mg/dL Total Bilirubin 0.3 (0.0-1.0) mg/dL AST 29 (5-31) U/L ALT 13 (0-31) U/L Alkaline Phosphatase 79 (39-117) U/L C-Reactive Protein 0.19 (< or = 0.50) mg/dL Total Protein 6.9 (6.5-8.0) g/dL Albumin 4.4 (3.5-5.0) g/dL Beta HCG, Quant < 2 mIU/mL Radiology Impression Radiologist Impression: Please see the discussion above External Record Review External record reviewed: Outpatient record and Prior outpatient labs Discharge Plan Discharge Clinical Impression: Closed fracture of right acetabulum Patient Disposition: Home, Self-Care Instructions: Hip Fracture (ED) Additional Instructions: 1. Tylenol 1000 mg, orally, every 6 hours as needed for pain control. Do not exceed 4000 mg within 24 hours. 2. Ibuprofen 400 mg, orally with milk or food, every 6 hours as needed for pain control. May combine with the Tylenol for improved symptom relief. 3. 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 4. A referral for Orthopedics has been given 2 below, you should be using a walker for all ambulation and you have communicated to me that you have a walker available at home. You should use weight-bearing as tolerated . Return to the ER for any worsening symptoms. Prescriptions: New ondansetron 4 mg film 4 mg PO Q8H PRN (Reason: nausea and vomiting) Qty: 30 0RF oxycodone 5 mg tablet 5 mg PO Q8H PRN (Reason: breakthrough pain, severe) Qty: 7 0RF Rx Instructions: Partial Fill upon patient request. No Action ondansetron 4 mg tablet,disintegrating 4 mg PO Q8H PRN (Reason: nausea and vomiting) 7 Days Qty: 20 0RF sumatriptan succinate 100 mg tablet 100 mg PO PRN (Reason: Migraine Headache) sertraline 25 mg tablet 25 mg PO DAILY amitriptyline 25 mg tablet 25 mg PO BEDTIME hyoscyamine sulfate 0.125 mg tablet 0.125 mg PO QID PRN (Reason: pain) metronidazole 500 mg tablet 500 mg PO BID 14 Days Qty: 28 0RF Stand Alone Forms: Work/School Release
[2023-01-07 12:36] LABS: Alanine Aminotransferase 13 U/L (0-31); Albumin Level 4.4 g/dL (3.5-5.0); Alkaline Phosphatase 79 U/L (39-117); Anion Gap 10 (12-20); Aspartate Amino Transferase 29 U/L (5-31); Bilirubin Total 0.3 mg/dL (0.0-1.0); Blood Urea Nitrogen 12 mg/dL (9-16); C Reactive Protein 0.19 mg/dL (< or = 0.50); Calcium 9.6 mg/dL (8.4-10.2); Carbon Dioxide 24 mmol/L (22-29); Chloride 110 mmol/L (96-108); Creatinine Clr Calc Pharmacy 87.6; Estimated Glomerular Filt Rate > 60; Glucose Random 98 mg/dL (60-115); Potassium 4.3 mmol/L (3.3-5.1); Sodium 140 mmol/L (135-145); Total Protein 6.9 g/dL (6.5-8.0)
[2023-01-07 12:38] LABS: HCG Quantitative < 2 mIU/mL
[2023-01-07 12:54] LABS: Erythrocyte Sedimentation Rate 7 MM/HR (0-20)
[2023-01-07] MEDS: oxyCODONE HCl Immed Release 5 MG TABLET PO (14:06)
== END 2023-01-07 15:15 | disposition home or self-care (01) ==
PROVIDERS: Emergency Provider Student in an Organized Health Care Education/Training Program; PCP Nurse Practitioner Family
DX: S32.491A Other specified fracture of right acetabulum, initial encounter for closed fracture (principal); W01.0XXA Fall on same level from slipping, tripping and stumbling without subsequent striking against object, initial encounter; M25.511 Pain in right shoulder; Y93.89 Activity, other specified; Y92.019 Unspecified place in single-family (private) house as the place of occurrence of the external cause; Y99.9 Unspecified external cause status
CPT/HCPCS: 36415; 71101; 73030; 73502; 80053; 84702; 85025; 85652; 86140; 99283

== ENCOUNTER 2023-01-12 10:42 | Outpatient (REF) | payer OTHER, SELFPAY ==
--- NOTE | ~2023-01-12 | XR_ITS ---
EXAMINATION: XR PELVIS CLINICAL INFORMATION: Acetabular fracture. COMPARISON: Prior radiographs, most recently 01/07/2023. TECHNIQUE: AP and bilateral Judet views of the pelvis. FINDINGS: A stable 2 mm well-corticated osseous fragment is seen adjacent to the right acetabular roof, likely a small accessory ossification center or chronic avulsion fragment. Hip joint spaces are maintained. The femoral heads are smooth. Alignment is anatomic. Sacroiliac joints and pubic symphysis are normal. No abnormal soft tissue calcifications. XR/XR pelvis min 3V IMPRESSION: A stable 2 mm well-corticated osseous fragment is situated adjacent to the right acetabular roof. This likely represents a small accessory ossification center or chronic avulsion fragment. No acute finding is seen. There is no significant degenerative change of the hips.
== END 2023-01-12 10:43 | disposition home or self-care (01) ==
LOC: HO.HOSX 10:42
PROVIDERS: Visit Provider Orthopaedic Surgery
DX: S32.401A Unspecified fracture of right acetabulum, initial encounter for closed fracture (principal)
CPT/HCPCS: 72190

== ENCOUNTER 2023-01-13 09:43 | Outpatient (AMB) | payer OTHER, SELFPAY ==
--- NOTE | 2023-01-13 10:28 | A.OFFVIS_ITS ---
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 States on 01/06/23, she was washing her dog and slipped on some water on the floor, felling heavily onto her right side and injuring her shoulder and hip. Seen in ED 01/07/23 who referred pt to our office. The patient describes her hip pain as achy in nature. Most of the pain is located within her right groin. She also has intermittent neck discomfort. The patient did undergo neck surgery by Dr. Christiano Deleon several years ago. She denies any numbness or tingling in either of her upper extremities. Allergies seasonal Allergy (Intermediate, Uncoded 01/13/23 10:34) Nasal congestion Medication List - Last Reconciled 01/13/23 by Clark Benitez MD amitriptyline 25 mg PO BEDTIME hyoscyamine sulfate 0.125 mg PO QID PRN metronidazole 500 mg PO BID 14 days ondansetron 4 mg PO Q8H PRN ondansetron 4 mg PO Q8H PRN 7 days oxycodone 5 mg PO Q8H PRN oxycodone 5 mg PO Q8H PRN sertraline 25 mg PO DAILY sumatriptan succinate 100 mg PO PRN PFSH Medical History ARASH positive Chronic pain Chronic pain syndrome Depression with anxiety Fibromyalgia GERD (gastroesophageal reflux disease) IBS (irritable bowel syndrome) Interstitial cystitis Lupus Migraine with aura PONV (postoperative nausea and vomiting) Renal calculi Sacroiliitis Vitamin D deficiency Surgical History H/O colonoscopy H/O cystoscopy H/O lithotripsy History of dilatation and curettage History of loop electrical excision procedure (LEEP) Family History Mother Hx of cancer of lung Other No family history of breast cancer Social History (Updated 01/13/23 @ 10:35 by Milla Aldana [facility]) Are you a primary intensive care unit nurse to a significant other at home: No Do you presently have visiting nurse or other home services: No Alcohol intake: never Patient Tobacco Use Status: Never used Tobacco Current occupational status: employed Current occupation: community health worker/ rt hand Sexual orientation: Straight/Heterosexual Gender identity: Female Female Reproductive History Menstrual Age of Menarche: 13 Physical Exam Vital Signs: BMI result Body Mass Index 22.5 Const Other: Well-nourished well-developed very friendly female awake alert and oriented x3 in no acute distress Extrem Other: Bilateral lower extremity examination shows good capillary refill, no skin lesions noted, normal sensation light touch Right hip examination shows slightly decreased range of motion when compared to her left hip, mild discomfort with range of motion, no tenderness over bursa Right shoulder examination shows almost full range of motion when compared to her left shoulder, 4+ out of 5 strength with supraspinatus testing, positive impingement signs, mild tenderness over her acromioclavicular joint Results Reviewed Results Reviewed: X-rays of the patient's right hip show minimal diffuse joint space narrowing as well as a small avulsion fracture measuring approximately 2 mm x 2 mm off of her lateral acetabulum Assessment & Plan Assessment & Plan (1) Acetabular fracture: Code(s): S32.409A - Unspecified fracture of unspecified acetabulum, initial encounter for closed fracture Plan: Ms. Jane presents with right hip pain due to muscle strain as well as a small avulsion fracture off of the lateral aspect of her acetabulum. She also has right shoulder pain due to rotator cuff tendinosis versus possible rotator cuff tearing. I had a lengthy discussion with the patient regarding the treatment options. At this point the patient's symptoms seem to be improving non operative treatments. She will continue to progress to activities as tolerated. I did refill her prescription for oxycodone. She will contact me prior to her follow-up appointment in 4-6 weeks should her symptoms worsen in any way. Feel free to call me at any time should questions regarding her orthopedic management arise. Thank you very much for asking me to see this very friendly patient. I spent 22 minutes in reviewing the patient's records and imaging studies, seeing the patient and documenting in the medical record. Orders: Orders XR pelvis min 3V Today S32.409A - Unspecified fracture of unspecified acetabulum, initial encounter for closed fracture Medications: New oxycodone Partial Fill upon patient request. 5 mg PO Q8H PRN 30 tabs 0RF pain Coding Level of Care Code New Pt Level 2 (94398) Diagnoses Acetabular fracture S32.409A
[2023-01-13 10:35] VITALS: BMI 22.5
== END 2023-01-13 10:46 | disposition home or self-care (01) ==
PROVIDERS: PCP Nurse Practitioner Family; Visit Provider Orthopaedic Surgery
DX: S32.409A Unspecified fracture of unspecified acetabulum, initial encounter for closed fracture (principal)
CPT/HCPCS: 99202

== ENCOUNTER → 2023-01-13 09:43 | Outpatient (BNVA) | payer OTHER, SELFPAY | PROVIDERS: PCP Nurse Practitioner Family; Visit Provider Orthopaedic Surgery | DX: S32.409A Unspecified fracture of unspecified acetabulum, initial encounter for closed fracture (principal) ==

== ENCOUNTER 2023-03-01 08:34 | Outpatient (AMB) | payer OTHER, SELFPAY ==
--- NOTE | 2023-03-01 08:48 | MHC.OFFVIS ---
Intake Vital Signs 03/01/23 08:49 Height 5 ft 5 in Weight 135 lb BMI 22.5 Intake Visit Reasons: OV-Closed fracture of right acetabulum-Follow up Intake Note: Stephenie is a 47 year old female who presents today with complaints of progressively worsening low back pain which radiates into her right leg. She denies any groin pain. She states that her back pain has gotten worse over the last few years in spite of continued non operative treatments. She has had cortisone injections given into her low back in the past which gave her minimal relief. She also reports intermittent weakness in her right leg. She has fallen on several occasions. She has tried Tylenol and anti-inflammatory medicines which gave her minimal relief. She has also done physical therapy for 12 weeks over the last 6 months which aggravated her pain. Allergies seasonal Allergy (Intermediate, Uncoded 01/13/23 10:34) Nasal congestion Medication List - Last Reconciled 03/01/23 by Clark Benitez MD amitriptyline 25 mg PO BEDTIME hyoscyamine sulfate 0.125 mg PO QID PRN metronidazole 500 mg PO BID 14 days ondansetron 4 mg PO Q8H PRN ondansetron 4 mg PO Q8H PRN 7 days oxycodone 5 mg PO Q8H PRN oxycodone 5 mg PO DAILY PRN sertraline 25 mg PO DAILY sumatriptan succinate 100 mg PO PRN PFSH Medical History ARASH positive Chronic pain Chronic pain syndrome Depression with anxiety Fibromyalgia GERD (gastroesophageal reflux disease) IBS (irritable bowel syndrome) Interstitial cystitis Lupus Migraine with aura PONV (postoperative nausea and vomiting) Renal calculi Sacroiliitis Vitamin D deficiency Surgical History H/O colonoscopy H/O cystoscopy H/O lithotripsy History of dilatation and curettage History of loop electrical excision procedure (LEEP) Family History Mother Hx of cancer of lung Other No family history of breast cancer Social History (Updated 01/13/23 @ 10:35 by ELIJAH Hugo) Are you a primary respiratory care assistant to a significant other at home: No Do you presently have visiting nurse or other home services: No Alcohol intake: never Patient Tobacco Use Status: Never used Tobacco Current occupational status: employed Current occupation: community health worker/ rt hand Sexual orientation: Straight/Heterosexual Gender identity: Female Female Reproductive History Menstrual Age of Menarche: 13 Physical Exam Vital Signs: BMI result Body Mass Index 22.5 Const Other: Well-nourished well-developed very friendly female awake alert and oriented x3 in no acute distress Back/Spine/Pelvis Other: Low back examination shows right-sided paraspinal muscle tenderness, pain with range of motion, positive straight leg raise test on the right at 70 degrees, 4/5 strength with testing of her right hip flexors and knee extensors when compared to 5/5 strength on her left side Results Reviewed Results Reviewed: X-rays of the patient's lumbar spine show moderate diffuse degenerative disc disease, no acute bony abnormalities Assessment & Plan Assessment & Plan (1) Low back pain: Code(s): M54.50 - Low back pain, unspecified Plan: Ms. Jane presents with progressively worsening low back pain which radiates down her right leg as well as associated right leg weakness possibly due to lumbar stenosis or a disc herniation. Thus, will send the patient for an MRI of her lumbar spine for further evaluation. I will see her back once the MRI is completed. She will contact me prior to that time should her symptoms worsen in any way. Feel free to call me at any time should questions regarding her orthopedic management arise. I spent 22 minutes in reviewing the patient's records and imaging studies, seeing the patient and documenting in the medical record. Orders: Orders MR lumbar spine wo con Today M54.50 - Low back pain, unspecified Coding Level of Care Code Est Pt Level 2 (06055) Diagnoses Low back pain M54.50
[2023-03-01 08:49] VITALS: BMI 22.5
== END 2023-03-01 09:20 | disposition home or self-care (01) ==
PROVIDERS: PCP Nurse Practitioner Family; Visit Provider Orthopaedic Surgery
DX: M54.50 Low back pain, unspecified (principal)
CPT/HCPCS: 99212

== ENCOUNTER → 2023-03-01 08:34 | Outpatient (BNVA) | payer OTHER, SELFPAY | PROVIDERS: PCP Nurse Practitioner Family; Visit Provider Orthopaedic Surgery ==

== ENCOUNTER 2023-08-09 13:30 | Emergency (ER) | payer OTHER, SELFPAY ==
--- NOTE | ~2023-08-09 | CT_ITS ---
EXAMINATION: Left knee CT with IV contrast CLINICAL INFORMATION: Fall. Pain. Swelling. COMPARISON: Previous x-ray from earlier the same day TECHNIQUE: Axial images through the left knee following 85 mL Omnipaque 350 IV contrast. Sagittal and coronal reconstructions technologist workstation were performed. This CT examination was performed using dose optimization techniques as appropriate, variously including the following: *Automated exposure control *Adjustment of mA and/or kV according to patient size (this includes techniques or standardized protocols for targeted exams where dose is matched to indication/reason for exam; i.e. extremities or head) *Use of iterative reconstruction technique DLP 2 4 7 mg/cm FINDINGS: Bone alignment is normal. There is slight increased subchondral sclerosis of the medial tibial plateau, mild depression and medial femoral tibial joint space narrowing. No discrete lucency or fracture line seen. No other evidence of fracture. Bony structures otherwise unremarkable. No joint effusion. Soft tissue swelling anterior to the knee. CT/CT knee LT w IV con IMPRESSION: Slight increased subchondral sclerosis and depression of the medial tibial plateau and medial femoral tibial joint space narrowing. No discrete fracture line/lucency seen. This could be further evaluated with MRI if clinically indicated.
--- NOTE | ~2023-08-09 | XR_ITS ---
EXAMINATION: XR KNEE, LEFT CLINICAL INFORMATION: Knee pain COMPARISON: None available. TECHNIQUE: AP, lateral, and both oblique views of the left knee. FINDINGS: Soft tissue swelling at the anterior and lateral aspect of the knee, particularly within the superficial infrapatellar soft tissues. No fracture or malalignment. Joint spaces are well-preserved. No joint effusion. XR/XR knee LT 3V IMPRESSION: Soft tissue swelling at the anterior and lateral aspect of the knee. No acute osseous findings.
[2023-08-09 14:05] VITALS: BP 142/93; PULSE 117; RESP 18; TEMP 36.7; O2SAT 98
--- NOTE | 2023-08-09 14:09 | ED.LOWEXIN ---
HPI - Extremity Injury (Lower) General Chief Complaint: Extremity Injury, Lower Stated Complaint: L Knee Pain Injury 08/09/23 Time Seen by Provider: 08/09/23 16:39 Source: patient Mode of arrival: ambulatory Limitations: no limitations History of Present Illness HPI Narrative: 48-year-old female presents with complaints of left knee pain status post fall right onto her left knee. Her dogs were fighting, she fell right onto her left knee since then has been having pain, swelling and discoloration overlying the knee. Denies numbness and tingling. Reports she can not bear weight on it and is unable to move the left knee. No previous issues to left knee. Not on blood thinners. No known bleeding disorders. No trauma to head, neck, chest, abdomen or pelvis. Related Data Home Medications Medication Instructions Recorded Confirmed amitriptyline 25 mg tablet 25 mg PO BEDTIME 02/13/20 03/01/23 hyoscyamine sulfate 0.125 mg tablet 0.125 mg PO QID PRN pain 02/13/20 03/01/23 sertraline 25 mg tablet 25 mg PO DAILY 02/13/20 03/01/23 sumatriptan succinate 100 mg tablet 100 mg PO PRN Migraine Headache 02/13/20 03/01/23 Previous Rx's Medication Instructions Recorded ondansetron 4 mg disintegrating 4 mg PO Q8H PRN nausea and 12/21/21 tablet vomiting 7 days #20 tabs metronidazole 500 mg tablet 500 mg PO BID 14 days #28 tabs 02/17/22 ondansetron 4 mg oral soluble film 4 mg PO Q8H PRN nausea and 01/07/23 vomiting #30 ea oxycodone 5 mg tablet 5 mg PO Q8H PRN breakthrough pain, 01/07/23 severe #7 tabs oxycodone 5 mg tablet 5 mg PO DAILY PRN pain #5 tabs 03/14/23 ketorolac 10 mg tablet 10 mg PO TID PRN pain 5 days #15 08/09/23 tabs Allergies Allergy/AdvReac Type Severity Reaction Status Date / Time seasonal Allergy Intermediate Nasal Uncoded 01/13/23 10:34 congestion Review of Systems Review of Systems: Constitutional : No Weight loss, No Fever, No Chills, No Fatigue, No Malaise ENT/Mouth : No sore throat, No Rhinorrhea Eyes: No Eye Pain, No Swelling, No Redness Cardiovascular : No Chest Pain, No SOB, No Dyspnea on Exertion, No Orthopnea, No Edema, No Palpitations Respiratory : No Cough, No Sputum, No Wheezing Gastrointestinal : No Nausea, No Vomiting, No Diarrhea, No Constipation, No abdominal Pain, No Hematochezia, No Melena Genitourinary : No Dysuria, No Urinary Frequency, No Hematuria, Musculoskeletal : + joint pain, No Myalgias, + Joint Swelling Skin : No Skin Lesions, No rash Neuro : No Weakness, No Numbness, No Dizziness, No Headache Psych : No Anxiety/Panic, No Depression All other systems reviewed and are negative Yes all other systems are reviewed and are negative [facility] Past Medical History Attestation statement: The following information was validated with the patient. Source: old records reviewed and nursing notes reviewed Medical History Chronic pain syndrome Sacroiliitis Fibromyalgia PONV (postoperative nausea and vomiting) Vitamin D deficiency GERD (gastroesophageal reflux disease) Depression with anxiety Chronic pain IBS (irritable bowel syndrome) Interstitial cystitis ARASH positive Renal calculi Lupus Migraine with aura Surgical History History of dilatation and curettage History of loop electrical excision procedure (LEEP) H/O colonoscopy H/O cystoscopy H/O lithotripsy Family History Family History Mother Hx of cancer of lung Other No family history of breast cancer Social History Social History Are you a primary auto care center manager to a significant other at home: No Do you presently have visiting nurse or other home services: No Alcohol intake: never Patient Tobacco Use Status: Never used Tobacco Advance Directives: No Advance Directives Information Provided: Yes Current occupational status: employed Current occupation: community health worker/ rt hand Sexual orientation: Straight/Heterosexual Gender identity: Female Physical Exam Vital Signs: Vital Signs: Last Vital Signs Temp 98.1 F 08/09/23 14:05 Pulse 117 H 08/09/23 14:05 Resp 16 08/09/23 17:24 BP 142/93 H 08/09/23 14:05 Pulse Ox 98 08/09/23 14:05 BMI result Body Mass Index 20.0 vss Appearance: Alert.? Oriented X3.? No acute distress.? Head: Normocephalic, atraumatic, no step-offs or deformities Eyes: Pupils equal, round and reactive to light.? Neck: Normal inspection.? Neck supple.? CVS: Normal heart rate and rhythm.? Pulses normal.? Respiratory: No respiratory distress.? Breath sounds normal.? Abdomen: Soft and nontender.? Skin: Skin warm and dry.? Normal skin color.? Normal skin turgor.? Extremities: No lower extremity edema.? No calf ttp. 5/5 strength to bilateral upper and right lower extremity. + patient cant move L knee overlying ecchymosis and swelling. Normal R knee. 2+ popliteal, dp, at, pt pulsese equal and b/l. Normal sensation distally. Back: No midline tenderness, no C-spine tenderness, full range of motion, no CVA tenderness bilaterally Neuro: Oriented X 3.? No motor deficit.? No sensory deficit. CN 2-12 intact Course Course Course Narrative: This is an RME: Additional HPI, ROS, PE not included below will be deferred to primary provider. This is a 48-year-old female presenting to the emergency department due to left knee pain. Patient states that she tripped over a dog and landed directly on her knee. Significant swelling and ecchymosis to the left knee with exquisite tenderness. Unable to bear on left leg secondary to pain. No calf tenderness. Plan: X-ray left knee Reevaluation(s) Reevaluation #1: Soft tissue swelling at the anterior and lateral aspect of the knee. No osseous findings. CT scan of left knee slight increase in subchondral sclerosis and depression of the medial tibial plateau and medial femoral tibial joint space narrowing. No discrete fracture line/lucency seen. This could be further evaluated with MRI, no need for emergent MRI no signs of neurovascular compromise or threat to limb. Palpable pulses. I did discuss this case with ortho that recommends William wrap, compression, orthopedic follow-up. Will give her crutches as well. CBC with leukocytosis likely secondary to acute trauma. Chemistry no acute findings requiring intervention. Normal kidney function. Negative . Will send patient home with Toradol for pain. Educated patient on diagnosis and treatment plan, answered all question, patient verbalizes understanding. At this time patient will be discharged home, advised to return with new or worsening symptoms. Educated on worrisome signs and symptoms and when to return. At this time I feel comfortable discharge home. Time: 18:46 Reevaluation #2: Discussed this case with my attending Dr. Johnson Chavez who agrees w/ plan and dispo after evaluating patient Time: 18:47 Medications Administered Discontinued Medications Generic Name Dose Route Start Last Admin Trade Name Eva PRN Reason Stop Dose Admin Iohexol 100 ml 08/09/23 17:57 08/09/23 17:58 Iohexol 350 Mg/Ml 100 Ml Infus..Btl IV 08/09/23 17:58 85 ml ONCE ONE Administration Morphine Sulfate 4 mg 08/09/23 16:57 08/09/23 17:24 Morphine Sulfate 4 Mg/Ml Cartridge IVPUSH 08/09/23 16:58 4 mg ONCE ONE Administration Protocol Ondansetron HCl 4 mg 08/09/23 17:17 08/09/23 17:21 Ondansetron Hcl 4 Mg/2 Ml Vial IVPUSH 08/09/23 17:18 4 mg ONCE ONE Administration Medical Decision Making Medical Decision Making [facility] Narrative: 1652 48 yo f presents w/ l knee pain 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 No calf ttp. 5/5 strength to bilateral upper and right lower extremity. + patient cant move L knee overlying ecchymosis and swelling. Normal R knee. 2+ popliteal, dp, at, pt pulsese equal and b/l. Normal sensation distally. Concerns for traumatic hematoma to left knee as well as intra-articular bleeding. No signs of neurovascular compromise or acute threat to limb at this time. Patient not on blood thinners. No signs of arterial or venous occlusion. No trauma to head, neck, chest, abdomen or pelvis. Therefore no indication for imaging. Plan at this time imaging of left lower extremity. Differential Diagnosis Differential Diagnoses: The differential diagnosis associated with the presentation includes Concerns for traumatic hematoma to left knee as well as intra-articular bleeding. No signs of neurovascular compromise or acute threat to limb at this time. Patient not on blood thinners. No signs of arterial or venous occlusion. No trauma to head, neck, chest, abdomen or pelvis. Admission/Observation Consideration of admission/observation: Escalation of care including admission/observation considered Possible Consult Healthcare Provider Management of the patient was discussed with: Cmm Operator Lab Data [facility] Lab Attestation statement: I reviewed the patient's lab results. 08/09/23 17:08 08/09/23 17:08 Labs: Lab Results 08/09/23 Range/Units 17:08 WBC 11.2 H (4.8-10.8) X10*3/uL RBC 4.78 (4.20-5.50) X10*6/uL Hgb 14.2 (12.0-16.0) g/dl Hct 42.3 (37.0-47.0) % MCV 88.5 (80.0-98.0) fL MCH 29.7 (27.0-33.0) pg MCHC 33.6 (31.0-35.0) g/dl RDW 12.9 (11.0-16.0) % Plt Count 277 D (160-400) X10*3/uL MPV 9.4 (9.4-12.3) fL Immature Gran % (Auto) 0.2 (0.0-0.4) % Neut % (Auto) 63.2 (45-73) % Lymph % (Auto) 25.6 (20-40) % Rabun % (Auto) 6.9 (2-11) % Eos % (Auto) 3.4 (0-4) % Baso % (Auto) 0.7 (0-2) % Lymph # (Auto) 2.9 (1.2-4.9) X10*3/uL Rabun # (Auto) 0.8 (0.1-1.2) X10*3/uL Eos # (Auto) 0.4 (0.0-0.4) X10*3/uL Baso # (Auto) 0.1 (0.0-0.2) X10*3/uL Abs Immat Gran (auto) 0.02 (0.00-0.03) X10*3/uL Absolute Neuts (auto) 7.1 (2.0-8.3) x10*3/uL Absolute Nucleated RBC 0.000 (0.0-0.012) X10*3/uL Nucleated RBC % (auto) 0.0 (0.0-0.2) /100WBC PT 11.6 (11.1-13.3) SEC INR 1.0 (0.9-1.1) Sodium 139 (135-145) mmol/L Potassium 3.6 (3.3-5.1) mmol/L Chloride 104 (96-108) mmol/L Carbon Dioxide 27 (22-29) mmol/L Anion Gap 12 (12-20) BUN 15 (9-16) mg/dL Creatinine 0.71 (0.5-1.4) mg/dL Estim Creat Clear Calc 85.0 Estimated GFR > 60 Random Glucose 96 (60-115) mg/dL Calcium 10.5 H D (8.4-10.2) mg/dL Total Bilirubin 0.9 (0.0-1.0) mg/dL AST 30 (5-31) U/L ALT 20 (0-31) U/L Alkaline Phosphatase 99 (39-117) U/L Total Protein 8.2 H (6.5-8.0) g/dL Albumin 5.1 H (3.5-5.0) g/dL Beta HCG, Quant < 2 mIU/mL Independent Interpretation I performed an independent interpretation of an: Plain X-Ray ( XR/XR knee LT 3V IMPRESSION: Soft tissue swelling at the anterior and lateral aspect of the knee. No acute osseous findings. ) and CT Scan ( XR/XR knee LT 3V IMPRESSION: Soft tissue swelling at the anterior and lateral aspect of the knee. No acute osseous findings. ) Radiology Impression Discussion of test interpretation with radiology: I have reviewed the radiologist's reading. Prescription Management I considered prescription management with: Pain Medication Critical Care Time Critical Care Time Critical Care Time: Yes Total Critical Care Time: 45 Attestation: I attest to this time spent taking care of the patient, obtaining history, physical, reviewing labs, imaging, speaking to my attending, speaking to specialist. Discharge Plan Discharge Clinical Impression: Hematoma, Acute pain of left knee, Fall Patient Disposition: Home, Self-Care Instructions: Knee Pain (ED), R.I.C.E. Treatment (ED), Fall Prevention (ED), Bone Bruise (ED) Additional Instructions: Take your medications as prescribed. If you were prescribed antibiotics today, it is important that you take your medication to their entirety, do not skip any doses, do not finish them early. Follow-up with your primary care provider this week. Return to the emergency department with new or worsening symptoms. Such as fevers, chills, chest pain, shortness of breath, nausea, vomiting, dizziness, headache, vision changes, lethargy In case of emergency call 911 Toradol has been sent to your pharmacy, you tolerated this well in the department. Please take this as prescribed do not take this with ibuprofen, or other NSAIDs, do not mix this with alcohol. Side effects of this medication including increased risk for bleeding and possible kidney injury. CT/CT knee LT w IV con IMPRESSION: Slight increased subchondral sclerosis and depression of the medial tibial plateau and medial femoral tibial joint space narrowing. No discrete fracture line/lucency seen. This could be further evaluated with MRI if clinically indicated. XR/XR knee LT 3V IMPRESSION: Soft tissue swelling at the anterior and lateral aspect of the knee. No acute osseous findings. Prescriptions: New ketorolac 10 mg tablet 10 mg PO TID PRN (Reason: pain) 5 Days Qty: 15 0RF No Action oxycodone 5 mg tablet 5 mg PO DAILY PRN (Reason: pain) Qty: 5 0RF Rx Instructions: Partial Fill upon patient request. ondansetron 4 mg film 4 mg PO Q8H PRN (Reason: nausea and vomiting) Qty: 30 0RF oxycodone 5 mg tablet 5 mg PO Q8H PRN (Reason: breakthrough pain, severe) Qty: 7 0RF Rx Instructions: Partial Fill upon patient request. ondansetron 4 mg tablet,disintegrating 4 mg PO Q8H PRN (Reason: nausea and vomiting) 7 Days Qty: 20 0RF sumatriptan succinate 100 mg tablet 100 mg PO PRN (Reason: Migraine Headache) sertraline 25 mg tablet 25 mg PO DAILY amitriptyline 25 mg tablet 25 mg PO BEDTIME hyoscyamine sulfate 0.125 mg tablet 0.125 mg PO QID PRN (Reason: pain) metronidazole 500 mg tablet 500 mg PO BID 14 Days Qty: 28 0RF Referrals: [facility] [Provider Group] - 2 days Tamiko Ha DNP [Primary Care Provider] - 1 day Stand Alone Forms: Work/School Release
[2023-08-09 17:14] LABS: MANUAL DIFF FLAG NO
[2023-08-09 17:20] LABS: Basophils Absolute Auto 0.1 X10*3/uL (0.0-0.2); Basophils Percent Auto 0.7 % (0-2); Eosinophils Absolute Auto 0.4 X10*3/uL (0.0-0.4); Eosinophils Percent Auto 3.4 % (0-4); Hematocrit 42.3 % (37.0-47.0); Hemoglobin 14.2 g/dl (12.0-16.0); Imm Gran Abs Auto 0.02 X10*3/uL (0.00-0.03); Imm Gran Pct Auto 0.2 % (0.0-0.4); Lymphocytes Absolute Auto 2.9 X10*3/uL (1.2-4.9); Lymphocytes Percent Auto 25.6 % (20-40); Mean Corpuscular HGB Conc 33.6 g/dl (31.0-35.0); Mean Corpuscular Hemoglobin 29.7 pg (27.0-33.0); Mean Corpuscular Volume 88.5 fL (80.0-98.0); Mean Platelet Volume 9.4 fL (9.4-12.3); Monocytes Absolute Auto 0.8 X10*3/uL (0.1-1.2); Monocytes Percent Auto 6.9 % (2-11); Neutrophils Absolute Auto 7.1 x10*3/uL (2.0-8.3); Neutrophils Percent Auto 63.2 % (45-73); Platelet Count 277 X10*3/uL (160-400); Red Blood Count 4.78 X10*6/uL (4.20-5.50); Red Cell Distribution Width 12.9 % (11.0-16.0); White Blood Count 11.2 X10*3/uL (4.8-10.8)
[2023-08-09] MEDS: ondansetron HCL 4 MG/2 ML VIAL IVPUSH (17:21)
[2023-08-09 17:24] VITALS: RESP 16
[2023-08-09] MEDS: Morphine Sulfate 4 MG/ML CARTRIDGE IVPUSH (17:24)
[2023-08-09 17:28] LABS: Prothrombin Time 11.6 SEC (11.1-13.3)
[2023-08-09 17:37] LABS: Alanine Aminotransferase 20 U/L (0-31); Albumin Level 5.1 g/dL (3.5-5.0); Alkaline Phosphatase 99 U/L (39-117); Anion Gap 12 (12-20); Aspartate Amino Transferase 30 U/L (5-31); Bilirubin Total 0.9 mg/dL (0.0-1.0); Blood Urea Nitrogen 15 mg/dL (9-16); Calcium 10.5 mg/dL (8.4-10.2); Carbon Dioxide 27 mmol/L (22-29); Chloride 104 mmol/L (96-108); Estimated Glomerular Filt Rate > 60; Glucose Random 96 mg/dL (60-115); Potassium 3.6 mmol/L (3.3-5.1); Sodium 139 mmol/L (135-145); Total Protein 8.2 g/dL (6.5-8.0)
[2023-08-09 17:47] LABS: HCG Quantitative < 2 mIU/mL
[2023-08-09] MEDS: iohexoL 350 MG/ML 100 ML INFUS..BTL IV (17:58)
[2023-08-09] MEDS: Ketorolac Tromethamine 30 MG/ML VIAL IM (18:51)
[2023-08-09 19:15] VITALS: BP 143/93; PULSE 117; RESP 16; TEMP 36.7; O2SAT 98
== END 2023-08-09 19:16 | disposition home or self-care (01) ==
PROVIDERS: Physician Assistant; Emergency Provider Emergency Medicine; PCP Registered Nurse
DX: S80.02XA Contusion of left knee, initial encounter (principal); W01.0XXA Fall on same level from slipping, tripping and stumbling without subsequent striking against object, initial encounter; Y93.9 Activity, unspecified; Y92.9 Unspecified place or not applicable; Y99.9 Unspecified external cause status; M25.562 Pain in left knee; M25.462 Effusion, left knee
CPT/HCPCS: 36415; 73562; 73701; 80053; 84702; 85025; 85610; 96372; 96374; 96375; 99283; 99284; J1885; J2270; J2405; Q9967

== ENCOUNTER 2023-08-15 08:27 | Outpatient (AMB) | payer OTHER, SELFPAY ==
--- NOTE | 2023-08-15 08:29 | A.OFFVIS_ITS ---
Intake Vital Signs 08/15/23 08:29 Height 5 ft 5 in Weight 120 lb BMI 20.0 Intake Visit Reasons: Newprob-Left knee pain-DOI 08/09/23 Intake Note: Stephenie is a 48 year old female who presents with Left knee pain and locking. The patient states that over the last 6 months she has tripped over her dogs while walking them several times. Most of the pain is along the anterior and medial aspect of her knee. The patient states that her pain is an 8 on a scale of 1- 10. She has tried Tylenol and anti-inflammatory medicines which gave her minimal relief. She has also done physical therapy exercises which aggravated her pain. She states that her left knee will lock several times per day. She has difficulty sleeping and walking even short distances because of her pain and mechanical symptoms. Allergies seasonal Allergy (Intermediate, Uncoded 01/13/23 10:34) Nasal congestion Medication List - Last Reconciled 08/15/23 by Clark Benitez MD amitriptyline 25 mg PO BEDTIME hyoscyamine sulfate 0.125 mg PO QID PRN ketorolac 10 mg PO TID PRN 5 days metronidazole 500 mg PO BID 14 days ondansetron 4 mg PO Q8H PRN ondansetron 4 mg PO Q8H PRN 7 days oxycodone 5 mg PO Q8H PRN oxycodone 5 mg PO DAILY PRN sertraline 25 mg PO DAILY sumatriptan succinate 100 mg PO PRN PFSH Medical History Chronic pain syndrome Sacroiliitis Fibromyalgia PONV (postoperative nausea and vomiting) Vitamin D deficiency GERD (gastroesophageal reflux disease) Depression with anxiety Chronic pain IBS (irritable bowel syndrome) Interstitial cystitis ARASH positive Renal calculi Lupus Migraine with aura Surgical History History of dilatation and curettage History of loop electrical excision procedure (LEEP) H/O colonoscopy H/O cystoscopy H/O lithotripsy Family History Mother Hx of cancer of lung Other No family history of breast cancer Social History Are you a primary laboratory animal caretaker to a significant other at home: No Do you presently have visiting nurse or other home services: No Alcohol intake: never Patient Tobacco Use Status: Never used Tobacco Current occupational status: employed Current occupation: community health worker/ rt hand Sexual orientation: Straight/Heterosexual Gender identity: Female Female Reproductive History Menstrual Age of Menarche: 13 Physical Exam Vital Signs: BMI result Body Mass Index 20.0 Const Other: Well-nourished well-developed very friendly female awake alert and oriented x3 in no acute distress Extrem Other: Bilateral lower extremity examination shows good capillary refill, no skin lesions noted, normal sensation light touch Left knee examination shows a minimal effusion, minimal crepitus with range of motion, tenderness along her medial joint line, positive Nathaly's test, no instability Results Reviewed Results Reviewed: Standing full weight-bearing x-rays of the patient's left knee show minimal joint space narrowing, no acute bony abnormalities Assessment & Plan Assessment & Plan (1) Left knee pain: Code(s): M25.562 - Pain in left knee Plan Ms. Jane presents with left knee pain and mechanical symptoms most likely due to a tear of her medial meniscus. Thus, I will send the patient for an MRI of her left knee for further evaluation. I will see her back once the MRI is completed to discuss the findings and treatment options. I also gave her a prescription for tramadol to help with her symptoms in the meantime. Feel free to call me at any time should questions regarding her orthopedic management arise. I spent 22 minutes in reviewing the patient's records and imaging studies, seeing the patient and documenting in the medical record. Orders: Orders MR knee LT wo con Today M25.562 - Pain in left knee Medications: New tramadol 50 mg PO Q12H 1 month PRN 60 tabs 0RF pain Coding Level of Care Code Est Pt Level 2 (56394) Diagnoses Left knee pain M25.562
== END 2023-08-15 08:47 | disposition home or self-care (01) ==
PROVIDERS: PCP Registered Nurse; Visit Provider Orthopaedic Surgery
DX: M25.562 Pain in left knee (principal)
CPT/HCPCS: 99214

== ENCOUNTER → 2023-08-15 08:27 | Outpatient (BNVA) | payer OTHER, SELFPAY | PROVIDERS: PCP Registered Nurse; Visit Provider Orthopaedic Surgery ==

== ENCOUNTER 2024-07-18 07:58 | Emergency (ER) | payer OTHER, SELFPAY ==
--- NOTE | ~2024-07-18 | CT_ITS ---
EXAMINATION: CT ABDOMEN AND PELVIS WITHOUT CONTRAST CLINICAL INFORMATION: Left flank pain COMPARISON: September 20, 2016. TECHNIQUE: Multidetector volumetric imaging was performed from the superior aspect of the liver through the pubic symphysis. Sagittal and coronal reformatted images were obtained on the technologist's workstation. This CT examination was performed using dose optimization techniques as appropriate, variously including the following: *Automated exposure control *Adjustment of mA and/or kV according to patient size (this includes techniques or standardized protocols for targeted exams where dose is matched to indication/reason for exam; i.e. extremities or head) *Use of iterative reconstruction technique. DLP: 391 mGy centimeter. FINDINGS: Inadequate evaluation of the intra-abdominal organs and vascular structures due to lack of IV contrast. LUNG BASES: No specific less than 4 mm pulmonary groundglass nodules, right lower lung lobe. LIVER, GALLBLADDER, AND BILIARY TREE: Liver measures 17 cm. There is a 3 cm lobulated hypodensity in the dome of the left hepatic lobe.. No pericholecystic fluid collection or gallbladder wall thickening. No intrahepatic or extrahepatic biliary ductal dilatation. PANCREAS: No peripancreatic fluid collection. No main pancreatic ductal dilatation. SPLEEN: 10 cm. ADRENAL GLANDS: No nodular lesions. KIDNEYS AND URETERS: No hydronephrosis. 1 mm calculus in the lower pole right pelvicalyceal system. BLADDER: Fluid-filled. GASTROINTESTINAL TRACT: Appendix is normal. Abundant stool throughout the large intestine. No intestinal obstruction. No ascites. No pneumatosis intestinalis. No pneumoperitoneum. ABDOMINAL WALL: No umbilical hernia. LYMPH NODES: No lymphadenopathy, mesenteric or retroperitoneal. VASCULAR: No aneurysm, abdominal aorta. No calcified plaque. PELVIC VISCERA: Inadequate evaluation. Questionable small subserosal uterine fibroid. OSSEOUS STRUCTURES: No acute fracture or listhesis. Subchondral cyst formation right femoral neck. Levoconvex curvature of the lumbar spine. CT/CT abdomen pelvis wo IV con IMPRESSION: 1 mm nonobstructing calculus, right kidney. Nonspecific pulmonary nodular groundglass, right lung base. 3 cm hypodense lesion, dome left hepatic lobe. Probable subserosal uterine fibroid. Fleischner guidelines were followed. Electronically signed by: Mich Mendosa MD 07/18/2024 01:47 PM [facility]
[2024-07-18 08:06] VITALS: BP 119/69; PULSE 77; RESP 16; TEMP 36.4; O2SAT 99; BMI 35.8
[2024-07-18 08:30] LABS: MANUAL DIFF FLAG NO
[2024-07-18 08:31] LABS: Basophils Absolute Auto 0.1 X10*3/uL (0.0-0.2); Basophils Percent Auto 0.8 % (0-2); Eosinophils Absolute Auto 0.4 X10*3/uL (0.0-0.4); Eosinophils Percent Auto 6.3 % (0-4); Hematocrit 35.3 % (37.0-47.0); Hemoglobin 11.6 g/dl (12.0-16.0); Imm Gran Abs Auto 0.01 X10*3/uL (0.00-0.03); Imm Gran Pct Auto 0.2 % (0.0-0.4); Lymphocytes Absolute Auto 1.7 X10*3/uL (1.2-4.9); Lymphocytes Percent Auto 26.4 % (20-40); Mean Corpuscular HGB Conc 32.9 g/dl (31.0-35.0); Mean Corpuscular Hemoglobin 29.7 pg (27.0-33.0); Mean Corpuscular Volume 90.3 fL (80.0-98.0); Monocytes Absolute Auto 0.5 X10*3/uL (0.1-1.2); Neutrophils Absolute Auto 3.8 x10*3/uL (2.0-8.3); Neutrophils Percent Auto 59.3 % (45-73); Platelet Count 222 X10*3/uL (160-400); Red Blood Count 3.91 X10*6/uL (4.20-5.50); Red Cell Distribution Width 12.9 % (11.0-16.0); White Blood Count 6.4 X10*3/uL (4.8-10.8)
[2024-07-18 08:32] LABS: Appearance Urine Clear; Color Urine Yellow; Glucose Urine UA Negative (Negative); Leukocyte Esterase Urine Negative (Negative); Nitrite Urine Negative (Negative); PH 6.5 (5.0-9.0); Specific Gravity - Urine <= 1.005 (1.005-1.025); Urine Blood Negative (Negative); Urine Ketones Negative (Negative); Urine Protein Negative (Neg-Trace)
[2024-07-18 08:37] LABS: Bacteria Urine None Seen (None Seen); Hyaline Casts Urine 0-2 /LPF (0-2); RBC Urine 0-2 /HPF (0-2); Squamous Epithelial Cell Urine 0-2 /HPF (0-2); WBC Urine 0-5 /HPF (0-5)
[2024-07-18 08:45] LABS: Alanine Aminotransferase 21 U/L (0-31); Alkaline Phosphatase 76 U/L (39-117); Anion Gap 11 (12-20); Aspartate Amino Transferase 26 U/L (5-31); Bilirubin Total 0.1 mg/dL (0.0-1.0); Blood Urea Nitrogen 16 mg/dL (9-16); Calcium 9.1 mg/dL (8.4-10.2); Carbon Dioxide 29 mmol/L (22-29); Chloride 104 mmol/L (96-108); Creatinine Clr Calc Pharmacy 110.1; Estimated Glomerular Filt Rate > 60; Glucose Random 84 mg/dL (60-115); Potassium 4.5 mmol/L (3.3-5.1); Sodium 139 mmol/L (135-145); Total Protein 6.7 g/dL (6.5-8.0)
--- OUTSIDE RECORDS SUMMARY | 2024-07-18 08:49 | XMS_ITS | Clinical Summary ---
Author Organization [facility] Address [address] [place] [address] Care Team Providers Care Construction Executive Name Role Phone Unavailable Primary Care Provider Unavailabl e Source Comments PLEASE NOTE, if this patient is a minor, it may be UNLAWFUL to discuss sensitive information that is contained in these records (such as FAMILY PLANNING, MENTAL HEALTH or SUBSTANCE ABUSE) with the minor patient's parent or other person without the patient's specific authorization.[facility] Medications ibuprofen 800 mg tabletIndication s:Toothache Take 1 Tablet by mouth 3 (three) times daily as needed for pain 30 Tablet 09/12/2022 Active cyclobenzaprine (FLEXERIL) 5 mg tabletIndication s:Muscle spasm Take 1 Tablet by mouth 3 (three) times daily as needed for muscle spasms 12 Tablet 09/12/2022 Active Immunizations Name Administration Dates Next Due Flu, Preservative Free 01/24/2023 Hep B,adult,adjuvanted (HEPLISAV) 08/16/2022,05/202208/15/2022 Influenza (FLUBLOK),recombinant,injectable,preservative Free 02/16/2024 PPD 06/12/2023 Pfizer COVID-19 (Comirnaty), Mrna, Lnp-s, Pf, Joaquin-sucrose, 30 Mcg/0.3 Ml, 12yr+ 04/09/2024,05/31/2023 TDAP 11/17/2020,10/18/2007 Social History Tobacco Use Types Packs/Day Years Used Date Smoking Tobacco: Never Assessed Social Connections Answer Date Recorded Connectedness 0 02/08/2024 Financial Resource Strain Answer Date R ecorded Financial Resource Strain 0 2022 Stress Answer Date Recorded Stress 0 07/09/2022 Physical Activity Answer Date Recorded Physical Activity 0 07/09/2022 Food Insecurity Answer Date Recorded Food 0 02/08/2024 Transportation Needs Answer Date Record ed Transportation 0 07/09/2022 Housing Stability Answer Date Recorded Housing 0 07/09/2022 Safety and Environment Answer Date Tahir rded Safety 0 07/09/2022 Utilities Answer Date Recorded Utilities 0 07/09/2022 Employment Answer Date Recorded Stress 0 02/08/2024 Comments Unknown Sex and Gender Information Value Date Recorded Sex Assigned at Female 06/12/2023 6:30 AM PST Legal Sex Female 4:25 AM PST Gender Identity Female 06/12/2023 6:30 AM PST Sexual Orientation Choose not to disclose 2023 6:30 AM PST Last Filed Vital Signs Vital Sign Reading Time Taken Comments Blood Pressure 108/71 09/12/2022 3:13 PM EDT Pulse 117 09/12/2022 3:13 PM EDT Temperature - - Respiratory Rate - - Oxygen Saturation - - Inhaled Oxygen Concentration - - Weight - - Height - - Body Mass Index - - Plan of Treatment Health Maintenance Due Date Last Done Comments Diabetes Screening 1977 HPV Screening 1977 Hepatitis C Screening 1977 Lipid Screening 1977 Pap + HPV 1977 Tobacco Screening 1977 HIV Screening 1992 Relationship Safety Screening/Counseling 1992 Annual Preventive Care Visit 1995 Cervical Cancer Screening 1998 Pap Smear 1998 Breast Cancer Screening (Mammogram) 2017 CT Colonography 2022 Colonoscopy 2022 Colorectal Cancer Screening 2022 FIT/gFOBT 2022 Fecal DNA 2022 Flexible Sigmoidoscopy 2022 Hypertension Screening (#1) 09/12/2023 Alcohol and Drug Screen 05/15/2024 Depression Annual Screen 05/15/2024 Imm-DTaP/Tdap/Td (3 - Td or Tdap) 11/17/2030 021, 10/18/2007 Imm-Hepatitis B Completed 08/16/2022, 07/13/2022 Imm-Influenza Completed 02/16/2024, 01/13, 02/16/2022, Additional history exists [id number] Completed 04/09/2024, 05/15, 04/02/2021, Additional history exists Cervical Ablation/Cold-Knife Conization Discontinued Cervical Cryotherapy Discontinued Colposcopy Discontinued Endometrial Biopsy Discontinued Excision/Leep Discontinued HPV Genotyping Discontinued Vaginal Pap Discontinued Vulvoscopy Discontinued Insurance [facility] ([facility] Member Subscriber Plan / Payer ( fective 2022-Present) Name:Stephenie Jane Relation to Subscriber:Self Name:Stephenie Jane Payer ID:[id number] Group ID:Not on file Type:[employer] Address: [address] [place] [id number] [place] [address]/ DENTAL Member Subscriber Plan / Payer ( fective 2022-Present) Name:Stephenie Jane Relation to Subscriber:Self Name:Stephenie Jane Payer ID:[id number] Group ID:Not on file Type:[employer] Address: [facility] [id number] [place] [address]
[2024-07-18 09:10] LABS: Influenza A PCR NEGATIVE (Negative); Influenza B PCR NEGATIVE (Negative); Resp Syncy Virus RNA Qual PCR NEGATIVE (Negative); SARS COV2 PCR INHOUSE NEGATIVE (Negative)
--- NOTE | 2024-07-18 10:37 | ED_ITS ---
HPI - Abdominal Pain General Chief Complaint: Abdominal Pain Stated Complaint: Abd pain, back pain Time Seen by Provider: 07/18/24 10:23 Source: patient Mode of arrival: ambulatory Limitations: no limitations History of Present Illness ED Provider: DR. Virgen HPI narrative: 49-year-old female past medical history significant for lupus, came in for evaluation of abdominal pain started 2 days ago pain is mostly on the left lower abdomen radiates to the left flank area, pain is constant associated with nausea and vomiting, no diarrhea last bowel movement was yesterday, +passing flatus. History of kidney stones required a surgical intervention. No intra-abdominal surgery. Related Data Home Medications ?Medication ?Instructions ?Recorded ?Confirmed amitriptyline 25 mg tablet 25 mg PO BEDTIME 02/13/20 08/15/23 hyoscyamine sulfate 0.125 mg tablet 0.125 mg PO QID PRN pain 02/13/20 08/15/23 sertraline 25 mg tablet 25 mg PO DAILY 02/13/20 08/15/23 sumatriptan succinate 100 mg tablet 100 mg PO PRN Migraine Headache 02/13/20 08/15/23 Previous Rx's ?Medication ?Instructions ?Recorded ondansetron 4 mg disintegrating 4 mg PO Q8H PRN nausea and 12/21/21 tablet vomiting 7 days #20 tabs metronidazole 500 mg tablet 500 mg PO BID 14 days #28 tabs 02/17/22 ondansetron 4 mg oral soluble film 4 mg PO Q8H PRN nausea and 01/07/23 vomiting #30 ea oxycodone 5 mg tablet 5 mg PO Q8H PRN breakthrough pain, 01/07/23 severe #7 tabs oxycodone 5 mg tablet 5 mg PO DAILY PRN pain #5 tabs 03/14/23 ketorolac 10 mg tablet 10 mg PO TID PRN pain 5 days #15 08/09/23 tabs tramadol 50 mg tablet 50 mg PO Q12H PRN pain 1 month #60 08/15/23 tabs ondansetron 4 mg disintegrating 4 mg PO Q6H PRN nausea and 07/18/24 tablet vomiting #14 tabs Allergies Allergy/AdvReac Type Severity Reaction Status Date / Time seasonal Allergy Intermediate Nasal Uncoded 07/18/24 08:08 congestion Review of Systems Review of Systems All other systems are reviewed and are negative Constitutional: Reports as per HPI and Reports no additional constitutional complaints Eyes: Reports as per HPI and Reports no additional eye complaints Reports system reviewed and no additional complaints, except as documented Cardiovascular: Reports as per HPI and Reports no additional cardiovascular complaints Respiratory: Reports as per HPI and Reports no additional respiratory complaints Gastrointestinal: Reports as per HPI and Reports no additional gastrointestinal complaints Genitourinary: Reports no additional female genitourinary complaints Musculoskeletal: Reports no additional musculoskeletal complaints Skin/Breast: Reports system reviewed and no additional complaints, except as docu Psychiatric: Reports no additional psychiatric complaints Endocrine: Reports no additional endocrine complaints Hematologic/Lymphatic: Reports no additional hematologic/lymphatic complaints Allergic/Immunologic: Reports no additional allergic/immunologic complaints Reports system reviewed and no additional complaints, except as documented and Reports Abnormal speech present [facility] Past Medical History Medical History Chronic pain syndrome Sacroiliitis Fibromyalgia PONV (postoperative nausea and vomiting) Vitamin D deficiency GERD (gastroesophageal reflux disease) Depression with anxiety Chronic pain IBS (irritable bowel syndrome) Interstitial cystitis ARASH positive Renal calculi Lupus Migraine with aura Surgical History History of dilatation and curettage History of loop electrical excision procedure (LEEP) H/O colonoscopy H/O cystoscopy H/O lithotripsy Family History Family History Mother Hx of cancer of lung Other No family history of breast cancer Social History Social History Are you a primary cna caregiver to a significant other at home: No Do you presently have visiting nurse or other home services: No Alcohol intake: never Patient Tobacco Use Status: Never used Tobacco Advance Directives: No Advance Directives Information Provided: No Current occupational status: employed Current occupation: community health worker/ rt hand Sexual orientation: Straight/Heterosexual Gender identity: Female Physical Exam ED Vital Signs: Vital Signs - 24 hr 07/18/24 08:06 07/18/24 10:38 07/18/24 10:54 Temperature 97.6 F 97.8 F Pulse Rate 77 66 Respiratory Rate 16 18 20 Blood Pressure 119/69 112/77 Pulse Oximetry 99 100 Oxygen Delivery Method Room Air Room Air 07/18/24 13:10 07/18/24 13:10 Temperature 98.2 F Pulse Rate 71 Respiratory Rate 20 18 Blood Pressure 119/73 Pulse Oximetry 96 Oxygen Delivery Method Room Air BMI result Body Mass Index 35.8 Vital signs have been reviewed and appear to be correct. Blood pressure elevated. Heart rate normal. Respiratory rate normal. Temperature normal. Oxygen saturation normal. Appearance: Alert. Oriented X3. No acute distress. Head: Normal external exam. Normocephalic. Atraumatic. No Akins signs noted. No raccoon eyes noted Eyes: PERRLA. EOMI. Conjunctiva and sclera normal. Eyelids normal. ENT: TM's Normal. Pharynx normal. Uvula midline. Moist mucous membranes. No trismus noted. No drooling noted. No muffled voice noted. Neck: Normal inspection. Neck supple. FROM. No adenopathy. Thyroid Normal. No meningeal signs. No neck mass noted. CVS: Normal heart rate and rhythm. Heart sound normal. No murmurs noted. Pulses normal throughout. Respiratory: No respiratory distress. Painless inspiration. Breath sounds normal. No wheezes/rales/rhonchi noted. Chest nontender. No accessory muscle usage noted or decreased air movement noted. Abdomen: Soft, +right lower quadrant abdominal tenderness, +left lower quadrant abdominal tenderness, Bowel sounds normal in all 4 quadrants. No distention noted. No organomegaly noted. No visible injury noted. Back: Mild Left CVA tenderness. Full range of motion noted. Skin: Skin warm and dry. Normal skin color. Normal skin turgor. No rashes/lesions/lacerations noted. Extremities: No lower extremity edema. Extremities exhibit normal range of motion. Extremities nontender. Neuro: Oriented X 3. Cranial nerve exam: II-XII are grossly intact No motor deficit. No sensory deficit. Reflexes normal. Course Reevaluation(s) Reevaluation #1: Patient feels slight improvement, still complaining of back pain, slight nausea. Patient received IV fluids and pain medication in the ED, CT of the abdomen and pelvis shows incidental findings otherwise do not explain patient's symptoms. CT findings were discussed with the patient, lung nodule/hepatic cyst on CT can be followed as an outpatient with PCP. Will discharge the patient with follow-up with PCP. Time: 15:47 Medical Decision Making Differential Diagnosis Differential Diagnoses: The differential diagnosis associated with the presentation includes (Ureteric stone, acute appendicitis, pyelonephritis, UTI, colitis, diverticulitis, electrolyte derangement, severe anemia.) Admission/Observation Consideration of admission/observation: Escalation of care including admission/observation considered Lab Data MDM Lab Attestation statement: I reviewed the patient's lab results. 07/18/24 08:21 07/18/24 08:21 Labs: Lab Results 07/18/24 Range/Units 08:21 WBC 6.4 (4.8-10.8) X10*3/uL RBC 3.91 L (4.20-5.50) X10*6/uL Hgb 11.6 L (12.0-16.0) g/dl Hct 35.3 L (37.0-47.0) % MCV 90.3 (80.0-98.0) fL MCH 29.7 (27.0-33.0) pg MCHC 32.9 (31.0-35.0) g/dl RDW 12.9 (11.0-16.0) % Plt Count 222 (160-400) X10*3/uL MPV 9.0 L (9.4-12.3) fL Immature Gran % (Auto) 0.2 (0.0-0.4) % Neut % (Auto) 59.3 (45-73) % Lymph % (Auto) 26.4 (20-40) % Boyle % (Auto) 7.0 (2-11) % Eos % (Auto) 6.3 H (0-4) % Baso % (Auto) 0.8 (0-2) % Lymph # (Auto) 1.7 (1.2-4.9) X10*3/uL Boyle # (Auto) 0.5 (0.1-1.2) X10*3/uL Eos # (Auto) 0.4 (0.0-0.4) X10*3/uL Baso # (Auto) 0.1 (0.0-0.2) X10*3/uL Abs Immat Gran (auto) 0.01 (0.00-0.03) X10*3/uL Absolute Neuts (auto) 3.8 (2.0-8.3) x10*3/uL Absolute Nucleated RBC 0.000 (0.0-0.012) X10*3/uL Nucleated RBC % (auto) 0.0 (0.0-0.2) /100WBC Sodium 139 (135-145) mmol/L Potassium 4.5 D (3.3-5.1) mmol/L Chloride 104 (96-108) mmol/L Carbon Dioxide 29 (22-29) mmol/L Anion Gap 11 L (12-20) BUN 16 (9-16) mg/dL Creatinine 0.73 (0.5-1.4) mg/dL Estim Creat Clear Calc 110.1 Estimated GFR > 60 Random Glucose 84 (60-115) mg/dL Calcium 9.1 D (8.4-10.2) mg/dL Total Bilirubin 0.1 (0.0-1.0) mg/dL AST 26 (5-31) U/L ALT 21 (0-31) U/L Alkaline Phosphatase 76 (39-117) U/L Total Protein 6.7 (6.5-8.0) g/dL Albumin 4.0 (3.5-5.0) g/dL Beta HCG, Quant < 2 mIU/mL Urine Color Yellow Urine Appearance Clear Urine pH 6.5 (5.0-9.0) Ur Specific [place] <= 1.005 (1.005-1.025) Urine Protein Negative (Neg-Trace) mg/dL Urine Glucose (UA) Negative (Negative) mg/dL Urine Ketones Negative (Negative) mg/dL Urine Blood Negative (Negative) Urine Nitrite Negative (Negative) Ur Leukocyte Esterase Negative (Negative) Urine RBC 0-2 (0-2) /HPF Urine WBC 0-5 (0-5) /HPF Ur Squamous Epith Cells 0-2 (0-2) /HPF Urine Bacteria None Seen (None Seen) Hyaline Casts 0-2 (0-2) /LPF Influenza Type A (PCR) NEGATIVE (Negative) Influenza Type B (PCR) NEGATIVE (Negative) RSV RNA Qual (PCR) NEGATIVE (Negative) SARS-CoV-2 RNA (RT-PCR) NEGATIVE (Negative) Independent Interpretation I performed an independent interpretation of an: CT Scan (Abdomen and pelvis: mm nonobstructing calculus, right kidney. Nonspecific pulmonary nodular groundglass, right lung base. 3 cm hypodense lesion, dome left hepatic lobe. Probable subserosal uterine fibroid. ) Radiology Impression Discussion of test interpretation with radiology: I have reviewed the radiologist's reading. Medications Administered Discontinued Medications Generic Name Dose Route Start Last Admin Trade Name Freq PRN Reason Stop Dose Admin Sodium Chloride 1,000 mls @ 999 mls/hr 07/18/24 10:30 07/18/24 12:54 Ns IV 07/18/24 11:30 Infused .Q1H1M ONE Infusion Ketorolac Tromethamine 15 mg 07/18/24 10:30 07/18/24 10:57 Ketorolac Tromethamine 15 Mg/Ml Vial IVPUSH 07/18/24 10:31 15 mg ONCE ONE Administration Morphine Sulfate 1 mg 07/18/24 10:30 07/18/24 10:54 Morphine Sulfate 2 Mg/Ml Cartridge IVPUSH 07/18/24 10:31 1 mg ONCE ONE Administration Protocol Morphine Sulfate 1 mg 07/18/24 12:51 07/18/24 13:10 Morphine Sulfate 2 Mg/Ml Cartridge IVPUSH 07/18/24 12:52 1 mg ONCE ONE Administration Protocol Ondansetron HCl 4 mg 07/18/24 10:30 07/18/24 10:57 Ondansetron Hcl 4 Mg/2 Ml Vial IVPUSH 07/18/24 10:31 4 mg ONCE ONE Administration Discharge Plan Discharge Clinical Impression: Abdominal pain, Back pain Patient Disposition: Home, Self-Care Instructions: Abdominal Pain (ED) Prescriptions: New ondansetron 4 mg tablet,disintegrating 4 mg PO Q6H PRN (Reason: nausea and vomiting) Qty: 14 0RF No Action oxycodone 5 mg tablet 5 mg PO DAILY PRN (Reason: pain) Qty: 5 0RF Rx Instructions: Partial Fill upon patient request. ondansetron 4 mg film 4 mg PO Q8H PRN (Reason: nausea and vomiting) Qty: 30 0RF oxycodone 5 mg tablet 5 mg PO Q8H PRN (Reason: breakthrough pain, severe) Qty: 7 0RF Rx Instructions: Partial Fill upon patient request. ketorolac 10 mg tablet 10 mg PO TID PRN (Reason: pain) 5 Days Qty: 15 0RF ondansetron 4 mg tablet,disintegrating 4 mg PO Q8H PRN (Reason: nausea and vomiting) 7 Days Qty: 20 0RF sumatriptan succinate 100 mg tablet 100 mg PO PRN (Reason: Migraine Headache) sertraline 25 mg tablet 25 mg PO DAILY amitriptyline 25 mg tablet 25 mg PO BEDTIME hyoscyamine sulfate 0.125 mg tablet 0.125 mg PO QID PRN (Reason: pain) metronidazole 500 mg tablet 500 mg PO BID 14 Days Qty: 28 0RF tramadol 50 mg tablet 50 mg PO Q12H PRN (Reason: pain) 30 Days Qty: 60 0RF Print Language: Croatian
[2024-07-18 10:38] VITALS: BP 112/77; PULSE 66; RESP 18; TEMP 36.6; O2SAT 100
[2024-07-18 10:54] VITALS: RESP 20
[2024-07-18] MEDS: 0.9 % Sodium Chloride 1,000 ML 999 ML IV (10:54)
[2024-07-18] MEDS: Morphine Sulfate 2 MG/ML CARTRIDGE 1 MG IVPUSH ×2 (10:54→13:10)
[2024-07-18] MEDS: ondansetron HCL 4 MG/2 ML VIAL IVPUSH (10:57)
[2024-07-18] MEDS: Ketorolac Tromethamine 15 MG/ML VIAL IVPUSH (10:57)
[2024-07-18 11:04] LABS: HCG Quantitative < 2 mIU/mL
[2024-07-18 13:10] VITALS: BP 119/73; PULSE 71; RESP 18; RESP 20; TEMP 36.8; O2SAT 96
[2024-07-18 16:00] VITALS: BP 120/86; PULSE 74; RESP 16; TEMP 36.8; O2SAT 95
[2024-07-18 16:13] VITALS: BP 120/86; PULSE 72; RESP 18; TEMP 36.8; O2SAT 96
== END 2024-07-18 16:14 | disposition home or self-care (01) ==
PROVIDERS: Emergency Provider Emergency Medicine
DX: N20.0 Calculus of kidney (principal); R10.32 Left lower quadrant pain; R11.2 Nausea with vomiting, unspecified; M54.50 Low back pain, unspecified; Z79.899 Other long term (current) drug therapy; Z03.818 Encounter for observation for suspected exposure to other biological agents ruled out
CPT/HCPCS: 0241U; 74176; 80053; 81001; 84702; 85025; 96361; 96374; 96375; 96376; 99284; 99285; J1885; J2270; J2405

== ENCOUNTER → 2024-07-18 12:51 | Outpatient (BNV) | payer OTHER, SELFPAY | PROVIDERS: Emergency Provider Emergency Medicine; Visit Provider Radiology Diagnostic Radiology | DX: N20.0 Calculus of kidney (principal); R91.1 Solitary pulmonary nodule; K76.89 Other specified diseases of liver | CPT/HCPCS: 74176 ==